=== PATIENT | male | born 1950 | race Caucasian/White ===

== ENCOUNTER → 2016-12-03 | Day surgery (SDC) | payer OTHER ==
[2016-11-17 12:12] LABS: BASO % 0.2 %; BASO ABS # 0.01 K/uL (0-0.2); COMPLETE YES; IG% 0.2 %; LYMPH % 24.3 %; MEAN CELL VOLUME 88.9 fL (80-100); MEAN CORPUSCULAR HEMOGLOBIN 31.5 pg (25-34); MEAN CORPUSCULAR HGB CONC 35.5 g/dl (32-36); MEAN PLATELET VOLUME 9.9 fL (7.4-10.4); MONO % 7.5 %; NEUT % 64.8 %; PLATELET COUNT 162 K/uL (130-400); RED BLOOD COUNT 4.95 M/uL (4.7-6.1); WHITE BLOOD COUNT 5.35 K/uL (4.8-10.8)
[2016-11-17 12:25] LABS: BLOOD UREA NITROGEN 18 mg/dl (7-18); BUN/CREATININE RATIO 19.2 (10-20); CALCIUM 8.8 mg/dl (8.5-10.1); CARBON DIOXIDE 27 mmol/L (21-32); CHLORIDE 105 mmol/L (98-107); CREATININE 0.96 mg/dl (0.60-1.40); GLUCOSE 82 mg/dl (70-99); POTASSIUM 3.9 mmol/L (3.5-5.1); SODIUM 141 mmol/L (136-145)
[2016-11-26 11:36] VITALS: Ht 170.2 cm; Wt 86.4 kg
[~2016-12-03] VITALS: Ht 170.2 cm; Wt 86.4 kg
[~2016-12-03] MED LIST: ASPI81TA28 PO; ATOR-54 PO; ATROPINE SULFATE 0.1 MG/ML 5ML SYR IV PRN; BUPIVACAINE/EPINEPHRINE 0.25% 1:200,000 30 ML VIAL ONE; CLINDAMYCIN 600MG IV SCH; DEXAMETHASONE SOD INJ 4 MG/ML VIAL ONE; EpHEDrine SULFATE 50MG/5ML SYR ONE; EpHEDrine SULFATE INJ 50 MG/ML AMP IV PRN; EpHEDrine SULFATE INJ 50 MG/ML AMP ONE; EpINEphrine INJ 1MG/ML AMP 1 MG/ML AMP ONE; FENTANYL CITRATE INJ 50 MCG/1 ML 2 ML VIAL IV PRN; FENTANYL CITRATE INJ 50 MCG/1 ML 2 ML VIAL ONE; FLM4 PO; GLYCOPYRROLATE INJ 0.2 MG/ML VIAL ONE; KETO10TA PO; LACTATED RINGER'S 1000ML 1,000 ML IV SCH; LIDOCAINE HCL 1% MPF 2 ML VIAL ONE; LIDOCAINE HCL 2% 2 ML VIAL (20MG/ML) ONE; MIDAZOLAM HCL 1 MG/ML 2ML VIAL ONE; NEOSTIGMINE METHYLSULFATE 5 MG/5 ML SYR ONE; ONDANSETRON INJ 2 MG/ML 2 ML VIAL IV PRN; ONDANSETRON INJ 2 MG/ML 2 ML VIAL ONE; OXYC-57 PO; OXYCODONE/ACETAMINOPHEN 5-325 TAB PO PRN; PHENYLEPHRINE HCL INJ 10 MG/ML VIAL ONE; PROPOFOL IV EMULSION 10 MG/ML 20 ML VIAL IV ONE; PRT/40 PO; PRVHFAIN; ROCURONIUM BROMIDE 10 MG/ML 5 ML VIAL ONE; ROPIVACAINE 0.5% 5 MG/ML 30 ML VIAL ONE; SODIUM CHLORIDE 0.9% 1000ML 1,000 ML IV SCH; SUCCINYLCHOLINE CHLORIDE 20 MG/ML 10 ML VIAL IV ONE
--- NOTE | 2016-12-03 07:43 | History & Physical Bridge - [place] ---
H&P Re-Evaluation Bridge Note: I have examined the patient, reviewed the History & Physical and in the interval since the performance of the History & Physical I have noted the following changes of clinical significance: No changes noted
--- NOTE | 2016-12-03 10:21 | [facility] Post Operative Brief Note ---
Immediate Operative Summary Operative Date Dec 03, 2016. Pre-Operative Diagnosis Left Shoulder Rotator Cuff Tear Post-Operative Diagnosis Same Procedure(s) Performed Left Shoulder Arthroscopy, Medium Rotator Cuff Repair, Acromioplasty, Biceps Tenodesis Surgeon Dr. Rawls Baler Surgeon(s) Ariana Willams PA-C Estimated Blood Loss 5 mL Findings as above Specimens None Complication(s) None Disposition Recovery Room / PACU
--- NOTE | 2016-12-03 10:39 | Discharge Instructions-SurgCtr ---
Discharge Instructions Visit Reason for Visit: Left Shoulder Full Thickness Rotator Cuff Tear Discharge Discharge Diagnosis / Problem: SAME ABOVE Discharge Goals Goal(s): Decrease discomfort, Improve function Activity Recommendations Activity Limitations: as noted below Lifting Limitations: until after follow-up appointment Exercise/Sports Limitations: until after follow-up appointment Shower/Bathe: tomorrow Driving or Machine Use: MAY NOT DRIVE WHILE IN SLING OR TAKING PAIN MEDICATION Anesthesia . Post Anesthesia Instructions: If you have had General Anesthesia or IV Sedation: * Do not drive today. * Resume driving when surgeon permits. * Do not make important decisions or sign legal documents today. * Call surgeon for: 1. Temperature elevations greater than 101 degrees F. 2. Uncontrollable pain. 3. Excessive bleeding. 4. Persistent nausea and vomiting. 5. Medication intolerance (nausea, vomiting or rash). * For nausea and vomiting use only clear liquids such as: tea, soda, bouillon until nausea subsides, then gradually increase diet as tolerated. * If you have any concerns or questions, call your surgeon's office. If physician is unavailable and it is an emergency, call 911 or go to the nearest emergency room. . Instructions / Follow-Up Instructions / Follow-Up MEDICATIONS: * Resume previous medications unless instructed otherwise by your surgeon. * Always take pain medication on a full stomach or with food to avoid upset stomach. * Do not drink alcohol or drive while taking narcotics. * Ibuprofen or Tylenol may be taken if narcotic not needed. SPECIAL CARE INSTRUCTIONS: __ None _X_ Keep extremity elevated and iced x 48 hours; apply ice 20-30 minutes 8-10 times/day. May remove at night. __ Sling __24 hrs/day __ Remove at night _X_ Shoulder Immobilizer (MAY REMOVE AFTER 24-48 HOURS ONLY TO SHOWER AND FOR THERAPY) _X_ 24 hrs/day __ Remove at night __ Dressing __ Maintain until seen in office, may shower with plastic over site _X_ Remove dressings in 24-48 hours and then may shower _X_ Cover incisions with band-aids after showering __ Do not remove steri-strips Call physician if chills or temperature rises above 102 degrees or pain unrelieved by prescribed pain medications at . . Diet Recommendations Home Diet: no limitations Fluid Restriction: None Procedures Procedures Performed: Left Shoulder Arthroscopy, Medium Rotator Cuff Repair, Acromioplasty, Biceps Tenodesis Pending Studies Studies pending at discharge: no Work Instructions Return To Work: after follow-up Lifting Limitations: NO LIFTING WITH LEFT ARM Medical Emergencies . Who to Call and When: Medical Emergencies: If at any time you feel your situation is an emergency, please call 911 immediately. . Non-Emergent Contact Non-Emergency issues call your: Primary Care Provider Call Non-Emergent contact if: you have a fever, temperature is above 101.5 . . "Provider Documentation" section prepared by Iban Willams.
--- NOTE | 2016-12-03 10:45 | OPERATIVE REPORT ---
DATE OF OPERATION: 12/03/2016 PREOPERATIVE DIAGNOSIS: Degenerative medium sized left rotator cuff tear. POSTOPERATIVE DIAGNOSIS: Same. PROCEDURE: Left shoulder diagnostic arthroscopy with limited debridement, acromioplasty, medium-sized degenerative rotator cuff repair and arthroscopic biceps tenodesis. SURGEON: Dr. Anurag Rawls. DIE FITTER: Curtis Willams PA-C, whose assistance was necessary for positioning the arm and helping with instrumentation. ANESTHESIA: General with a left interscalene nerve block. COMPLICATIONS: None. CONDITION: Stable to PACU. INDICATIONS: Julián is a pleasant 66-year-old male who presented to my office with chronic left shoulder pain. MRI and clinical examination were diagnostic for severe external impingement and degenerative rotator cuff tear. After failing conservative treatment, he elected to undergo arthroscopy. OPERATION AND FINDINGS: PROCEDURE: On 12/03/2016 he arrived at [facility] for the above procedure. He was seen in the preoperative holding and the operative extremity was identified and signed. He was given a preoperative antibiotic and a left interscalene nerve block. He was taken back to the operating room, laid on the table in supine position and put under general anesthesia. He was put into the beachchair position. The left shoulder was prepped and draped in sterile fashion. Time-out was done and the patient and operative extremity was properly identified. The scope was introduced in the posterior portal. Diagnostic arthroscopy showed a little bit of cartilage damage to the far anterior humerus. There was no cartilage damage on the glenoid. There was some fraying of the labrum. There was a tear of the entire supraspinatus and a little bit of the upper portion of the infraspinatus. The remainder of the infraspinatus, teres minor and subscapularis were all checked and intact. The biceps tendon was slightly frayed. An anterior portal was made. A shaver was used to do a limited debridement of the intraarticular structures and the biceps tendon was arthroscopically tenotomized. The scope was then put into the subacromial space. A lateral portal was made. A shaver was used to do a complete subacromial and subdeltoid bursectomy. An ablator was used to tease the coracoacromial ligament off the undersurface of the acromion and a 5-0 wil was used to complete an acromioplasty of a large Bigliani type 3 acromion. A shaver was used to remove any excess debris. The bursal side of the rotator cuff was examined with evidence of the tear. An additional anterolateral portal was made and Kayley cannulas were placed in each of the lateral portals. The greater tuberosity was prepared with a ring curette and a microfracture. The rotator cuff was then fixed with an Arthrex SpeedBridge configuration with 4.75 mm BioComposite SwiveLock suture anchors and FiberTape. The biceps tendon was lassoed with a fiber loop and brought down to the lateral anchor. This gave a nice knotless rotator cuff repair as well as an arthroscopic biceps tenodesis. Multiple pictures were taken. The scope was placed back into the glenohumeral joint and the articular margin of the rotator cuff had been restored. Pictures were taken. Arthroscopic instruments were removed from the shoulder. Portal sites were closed with 3-0 nylon. He was then placed in a soft dressing and an abduction arm sling. He was then extubated, transferred to a litter and taken to the postanesthesia care unit in stable condition. He tolerated the procedure well. I attest to the content of the Intraoperative Record and any orders documented therein. Any exceptio ns are noted below.
[2016-12-03 11:20] VITALS: TEMP 36.4
[2016-12-03 11:55] VITALS: BP 126/79; PULSE 68; O2SAT 96
--- NOTE | 2016-12-03 12:09 | Anesthesia Progress Nt - [facility] ---
Anesthesia Post Op Note Date & Time Dec 03, 2016 at 12:08 Vital Signs Pain Intensity: 0 Vital Signs Past 12 Hours Date Time Temp Pulse Resp B/P Pulse Ox O2 Delivery O2 Flow Rate FiO2 12/03/16 11:55 68 16 126/79 96 Room Air 12/03/16 11:20 36.4 67 16 119/71 96 Room Air 12/03/16 11:11 36.5 12/03/16 11:08 72 14 12/03/16 11:08 71 14 119/75 95 12/03/16 11:03 68 14 12/03/16 11:03 68 14 120/71 94 12/03/16 11:01 Room Air 12/03/16 10:58 68 13 12/03/16 10:58 67 13 114/86 98 12/03/16 10:53 62 15 122/69 98 12/03/16 10:53 63 15 12/03/16 10:48 68 17 136/71 97 12/03/16 10:48 67 17 12/03/16 10:43 71 17 12/03/16 10:43 70 17 136/72 99 12/03/16 10:38 67 15 137/62 98 12/03/16 10:38 68 15 12/03/16 10:35 36.4 75 16 124/74 99 Diffusion Mask 6 12/03/16 08:55 61 18 93 12/03/16 08:55 61 12/03/16 08:54 62 12/03/16 08:54 61 20 93 12/03/16 08:53 140/93 12/03/16 08:49 61 19 96 12/03/16 08:49 61 12/03/16 08:48 141/92 12/03/16 08:44 61 18 93 12/03/16 08:44 62 12/03/16 08:43 155/100 12/03/16 08:39 62 12/03/16 08:39 62 18 93 12/03/16 08:38 147/93 12/03/16 08:34 63 23 94 12/03/16 08:34 62 12/03/16 08:33 148/95 12/03/16 08:29 62 22 96 12/03/16 08:29 62 12/03/16 08:28 143/101 12/03/16 08:24 61 23 96 12/03/16 08:24 61 12/03/16 08:23 156/101 12/03/16 08:19 60 22 97 12/03/16 08:19 61 12/03/16 08:18 144/96 12/03/16 08:14 69 22 145/105 97 Nasal Cannula 3 12/03/16 08:14 61 17 98 12/03/16 08:14 61 12/03/16 08:13 171/105 12/03/16 08:12 145/105 12/03/16 08:09 60 0 12/03/16 08:04 60 0 12/03/16 07:36 36.7 65 22 169/94 97 Room Air Notes Mental Status: alert / awake / arousable, participated in evaluation Pt Amnestic to Procedure: Yes Nausea / Vomiting: adequately controlled Pain: adequately controlled Airway Patency, RR, SpO2: stable & adequate BP & HR: stable & adequate Hydration State: stable & adequate Anesthetic Complications: no major complications apparent
== END | disposition home or self-care (01) ==
LOC: X.SURG 07:04
PROVIDERS: ATTEND Orthopaedic Surgery
DX: M75.102 Unspecified rotator cuff tear or rupture of left shoulder, not specified as traumatic (principal); E78.5 Hyperlipidemia, unspecified; K21.9 Gastro-esophageal reflux disease without esophagitis; J45.909 Unspecified asthma, uncomplicated; Z88.0 Allergy status to penicillin

== ENCOUNTER → 2018-02-11 | Day surgery (SDC) | payer OTHER ==
[2018-01-31 08:39] VITALS: Ht 170.2 cm; Wt 86.4 kg
[~2018-02-11] VITALS: Ht 170.2 cm; Wt 86.4 kg
[~2018-02-11] MED LIST changes: -BUPIVACAINE/EPINEPHRINE 0.25% 1:200,000 30 ML VIAL ONE; -CLINDAMYCIN 600MG IV SCH; -EpHEDrine SULFATE 50MG/5ML SYR ONE; -EpINEphrine INJ 1MG/ML AMP 1 MG/ML AMP ONE; -GLYCOPYRROLATE INJ 0.2 MG/ML VIAL ONE; -KETO10TA PO; +KETOROLAC TROMETHAMINE 30 MG/ML VIAL ONE; -LIDOCAINE HCL 1% MPF 2 ML VIAL ONE; -MIDAZOLAM HCL 1 MG/ML 2ML VIAL ONE; -NEOSTIGMINE METHYLSULFATE 5 MG/5 ML SYR ONE; -OXYCODONE/ACETAMINOPHEN 5-325 TAB PO PRN; +PANT40TA2 PO; -PHENYLEPHRINE HCL INJ 10 MG/ML VIAL ONE; -PRT/40 PO; -PRVHFAIN; -ROCURONIUM BROMIDE 10 MG/ML 5 ML VIAL ONE; -ROPIVACAINE 0.5% 5 MG/ML 30 ML VIAL ONE; -SODIUM CHLORIDE 0.9% 1000ML 1,000 ML IV SCH; -SUCCINYLCHOLINE CHLORIDE 20 MG/ML 10 ML VIAL IV ONE; +VNTHFA/IN INH
--- NOTE | 2018-02-11 08:01 | [facility] Operative Report ---
Operative Report Operative Date Feb 11, 2018. Pre-Operative Diagnosis Right Renal Calculi Post-Operative Diagnosis Same Procedure(s) Performed Right Extracorporeal Shock Wave Lithotripsy Surgeon Dr. Rafael Newton Vault Custodian Surgeon(s) None Estimated Blood Loss 0 Findings radio-opaque right kidney stones Fluids 800mL Specimens None Drains None Anesthesia Type General Complication(s) none Disposition yes Recovery Room / PACU Indications right kidney stones Description of Procedure Patient had general LMA anesthesia and then was placed supine on OR table with right side against the lithotripsy head. We used biplanar fluoro to position the larger LP stone int he focal zone. We delivered 2500 shocks to the stone observing a 2 minute rest after the first 200 shocks. The stone widened then paled on fluoro through the course of treatment. He tolerated procedure well and transferred to recovery room in stable condition. Plan Home today oral pain meds narcotic and NSAID flomax daily for 2 weeks. strain urine for specimen. asa 2 Fluoro: 2 minutes 1 second I attest to the content of the Intraoperative Record and any orders documented therein. Any exceptions are noted below.
--- NOTE | 2018-02-11 08:04 | Discharge Instructions ---
Discharge Instructions Date of Service Feb 11, 2018. Admission Reason for Admission: Kidney Stones Discharge Discharge Diagnosis / Problem: right kidney stones Discharge Goals Goal(s): Decrease discomfort, Improve disease control Activity Recommendations Activity Limitations: resume your previous activity Lifting Limitations: none Exercise/Sports Limitations: none May Resume Sexual Activity: when tolerated Shower/Bathe: no limitations Driving or Machine Use: resume 1 day after discharge . Instructions / Follow-Up Instructions / Follow-Up we will repeat the x-ray in one month please strain your urine until you collect a few stone fragments for analysis Current Hospital Diet Patient's current hospital diet: Discharge Diet Recommended Diet: Regular Diet Fluid Restriction: None Procedures Procedures Performed: Right Extracorporeal Shock Wave Lithotripsy Pending Studies Studies pending at discharge: no Medical Emergencies . Who to Call and When: Medical Emergencies: If at any time you feel your situation is an emergency, please call 911 immediately. . Non-Emergent Contact Non-Emergency issues call your: Urologist ([phone]) Call Non-Emergent contact if: temperature is above 100.5, your pain is not controlled . . "Provider Documentation" section prepared by Sujata Newton. . [place] Drug Monitoring Program Search Results: patient reviewed within database, no issues identified
[2018-02-11 08:49] VITALS: TEMP 36.2
[2018-02-11 09:30] VITALS: BP 161/92; PULSE 60; O2SAT 96
--- NOTE | 2018-02-11 09:35 | Anesthesia Progress Nt - [facility] ---
Anesthesia Post Op Note Date & Time Feb 11, 2018 at 09:34 Vital Signs Pain Intensity: 0 Vital Signs Past 12 Hours Date Time Temp Pulse Resp B/P (MAP) Pulse Ox O2 Delivery O2 Flow Rate FiO2 02/11/18 09:30 60 18 161/92 (115) 96 Room Air 02/11/18 08:49 36.2 67 18 157/109 (125) 96 Room Air 02/11/18 08:40 134/88 02/11/18 08:40 36.5 60 12 134/88 96 Room Air 02/11/18 08:38 61 7 02/11/18 08:38 61 7 97 02/11/18 08:36 135/88 02/11/18 08:33 58 8 95 02/11/18 08:33 58 8 02/11/18 08:30 134/84 02/11/18 08:28 58 0 95 02/11/18 08:28 59 0 02/11/18 08:25 131/83 02/11/18 08:23 60 0 02/11/18 08:23 60 0 93 02/11/18 08:20 137/87 02/11/18 08:18 69 19 97 02/11/18 08:18 70 19 02/11/18 08:15 133/80 02/11/18 08:13 62 19 02/11/18 08:13 60 19 99 02/11/18 08:10 130/89 02/11/18 08:08 60 17 02/11/18 08:08 58 17 98 02/11/18 08:05 137/90 02/11/18 08:03 58 13 99 02/11/18 08:03 58 13 02/11/18 08:00 129/76 02/11/18 07:58 36.2 63 16 135/79 98 Room Air 6 02/11/18 07:58 60 13 02/11/18 07:58 60 13 135/79 98 02/11/18 06:34 36.7 57 16 175/92 (119) 96 Room Air Notes Mental Status: alert / awake / arousable, participated in evaluation Pt Amnestic to Procedure: Yes Nausea / Vomiting: adequately controlled Pain: adequately controlled Airway Patency, RR, SpO2: stable & adequate BP & HR: stable & adequate Hydration State: stable & adequate Anesthetic Complications: no major complications apparent
== END | disposition home or self-care (01) ==
LOC: X.SURG 06:21
PROVIDERS: ATTEND Urology
DX: N20.0 Calculus of kidney (principal); Z88.0 Allergy status to penicillin; Z79.82 Long term (current) use of aspirin

== ENCOUNTER 2020-01-22 07:16 | Inpatient (IN) ==
--- NOTE | 2020-01-22 07:38 | Emergency Department Note ---
ED Provider Note CHIEF COMPLAINT: Chest pain HISTORY OF PRESENTING ILLNESS: This is a 69-year-old male who presents to the emergency department by private vehicle with his with complaint of chest pain and nausea that started yesterday morning. The patient states that he woke up with the pain around 6 AM yesterday and has been fairly constant since that time. The pain is worse with eating. He states the pain is in the center of his chest and his epigastric region and radiates up into his jaw and left shoulder blade area, he currently rates the pain a 6/10. He has not tried any medications for his symptoms. He does note that he had similar chest pain a few years ago, had a stress test that was slightly abnormal and ended up having a heart catheterization that did not show any significant vessel disease. He has had associated nausea, but denies any vomiting. He denies any shortness of breath, dizziness, or sweating. He denies any back pain, headache, dizziness, URI symptoms, leg pain or swelling, bowel or bladder symptoms, or unusual rash. He does note a history of bad reflux, his thinks that this is worse than usual, but he states this feels different from his reflux. He has been burping more than usual. REVIEW OF SYSTEMS: A complete 10 point review of systems was reviewed with the patient with pertinent positives and negatives as per history of present illness. All else were negative. PAST MEDICAL HISTORY: Hypertension, GERD, hypercholesterolemia, BPH SOCIAL HISTORY: Lives at home with his , he denies tobacco use he reports rare alcohol use ALLERGIES: Reviewed in chart and with the patient PHYSICAL EXAM: CONSTITUTIONAL: Pleasant and cooperative. Nontoxic-appearing and no acute distress. Well appearing and well nourished. HEENT: Normocephalic, atraumatic. PERRL, EOMI. NECK: Supple, full active range of motion without discomfort. RESPIRATORY: Clear to auscultation bilaterally with no wheezing, crackles, rhonchi or stridor. Equal expansion bilaterally. CARDIOVASCULAR: Regular rate and rhythm with no murmurs, rubs or gallops. Normal peripheral perfusion, 2+ distal pulses in all 4 extremities. No pitting edema. GASTROINTESTINAL: Moderate tenderness in the epigastric abdomen, the abdomen is otherwise nontender, soft and nondistended. No rebound tenderness or guarding. No palpable masses or HSM. Bowel sounds present in all quadrants. No CVA tenderness bilaterally. MUSCULOSKELETAL: Full range of motion of all joints without discomfort. INTEGUMENTARY: No rash or other significant dermatologic conditions noted. NEUROLOGIC: Alert and oriented X 4 with normal affect. Normal strength and sen sation in all 4 extremities. Normal speech. Normal gait observed. ED COURSE AND MEDICAL DECISION MAKING: CC: Patient presenting with complaint of chest pain DIFFERENTIAL DIAGNOSIS: Includes, but not limited to acute coronary syndrome, pulmonary embolism, aortic dissection, pneumothorax, pericarditis, myocarditis, anxiety, musculoskeletal pain, GERD, cholecystitis, choledocholithiasis, pancr eatitis, costochondritis, pneumonia, among others. INTERPRETATION OF LABS: No leukocytosis, no anemia, normal platelets, no significant electrolyte abnormalities, normal renal function, normal liver enzymes. Lipase is significantly elevated. Negative troponin IMAGING: XR chest 1V portable CLINICAL HISTORY: Chest Pain pain COMPARISON STUDY: 06/20/2016 FINDINGS: The bones soft tissues and hemidiaphragms are normal. The cardiomediastinal silhouette is normal. The lungs are clear. The pulmonary vasculature is normal. IMPRESSION: Negative chest. ----- US gallbladder CLINICAL HISTORY: 69 years-old Male presenting with epigastric tenderness, elevated lipase. TECHNIQUE: Real-time grayscale and limited color Doppler ultrasound imaging of the abdomen limited to the right upper quadrant was performed. COMPARISON: CT from 08/19/2015. FINDINGS: Pancreas: Largely obscured due to overlying bowel gas. Liver: Normal echogenicity and echotexture. The liver measures 15.4 cm in maximal sagittal dimension. No sonographic evidence of hepatic mass. Main portal vein patent with normal directional flow. Biliary: No intrahepatic biliary ductal dilatation. Common bile duct measures up to 4 mm in diameter. Gallbladder: The gallbladder is physiologically distended. No evidence of gallstones, gallbladder wall thickening, pathologic distention, or pericholecystic fluid or inflammatory change. Sonographic Trevino's sign negative. Right kidney: Cortical thinning may be present. Slightly increased echogenicity of parenchyma. Parapelvic cyst suspected at the lower pole. No convincing dom dence of hydronephrosis. Ascites: None. Other: None. IMPRESSION: 1. No cholelithiasis or biliary ductal dilatation. 2. Mild medical renal disease suggested by cortical thinning of the right kidn ey. No hydronephrosis. EKG: Shows sinus bradycardia with a rate of 58 bpm, first-degree AV block, otherwise normal intervals, no ST or T wave abnormalities, no ectopy, no significant change when compared to previous EKG from 11/17/2016 by my interpretation. MEDICATION RECONCILIATION: I attest that I have personally reviewed the patient's current medication list. INITIAL VITAL SIGNS REVIEW: I reviewed the patient's initial vital signs and interpret them as follows: T: Afebrile; BP: Hypertensive; HR: Bradycardic; RR: Within normal limits; Pulse Ox: Within normal limits on room air. Blood pressure screening: The patient was found to have an elevated blood pressure and was referred to the inpatient team for further management. MDM SUMMARY: Patient was evaluated at bedside, history and physical exam performed. Patient is alert and oriented, in no acute distress, resting calmly in stretcher. Heart sounds are normal. Lungs are clear. 2+ pulses in all 4 extremities. Moderate tenderness in the epigastric region which does reproduce complaint. No acute abdomen. Low risk for PE by Wells criteria. Heart score of 4 based on age and risk factors. EKG reviewed at bedside, noting sinus bradycardia with first-degree AV block, no acute ischemic changes. Orders were placed at bedside for labs including troponin, aspirin, IV morphine for pain, chest x-ray to evaluate for cardiopulmonary disease. Patient discussed with Dr. Thomas, who agrees with my assessment, plan, and disposition. Labs and imaging reviewed as above, labs are notable for significantly elevated lipase, liver enzymes are normal. No leukocytosis. Negative troponin. Chest x-ray is clear. Ultrasound of the gallbladder was performed, no notable abnormalities found. I have a low suspicion for ACS given the patient's negative EKG and troponin after more than 24 hours of chest pain. His symptoms with abdominal tenderness do seem consistent with acute pancreatitis. IV fluid bolus ordered. He denies any previous history of this, unclear etiology at this time. He denies frequent or heavy alcohol use. Patient reassessed multiple times throughout ED stay, he has remained hemodynamically stable and afebrile, reports his pain is improved after the IV morphine, and he appears more comfortable. The patient and his were updated on all results and plan for admission, they were comfortable with this plan. I spoke with the [facility] team, who agreed to evaluate the patient for admission. The patient was stable at time of admission. The chart was completed utilizing Dragon Speech voice recognition software. Grammatical errors, random word insertions, pronoun errors, and incomplete se ntences are an occasional consequence of this system due to software limitations, ambient noise, and hardware issues. Any formal questions or concerns about the content, text, or information contained within the body of this dictation should be directly addressed to the nurse practitioner for hemal fication. Impression & Plan Acute pancreatitis, Chest pain Past Med/Surg History Medical History (Updated 01/22/20 @ 15:39 by NARINDER Arreguin) BPH (benign prostatic hyperplasia) GERD (gastroesophageal reflux disease) (Chronic) HTN (hypertension) Hypercholesteremia (Chronic) Kidney stone (Inactive) Surgical History (Updated 01/22/20 @ 11:27 by Vy Aguilar PA-C) History of colonoscopy History of esophagogastroduodenoscopy (EGD) History of lithotripsy Family History Father Prostate cancer Mother Alive and well Social History (Updated 01/22/20 @ 11:29 by Vy Aguilar PA-C) Preferred Language: Maldivian Communication Ability: Effective Beliefs That Will Affect Care: None Current Living Situation: Spouse Other Information That Helps Us Care for You: No Feels Safe at Home: Yes Safety Concerns: Feels Safe At This Time Smoking Status: Never smoker Hx Alcohol Use: Yes Alcohol Intake Frequency: Rarely Hx Substance Use: No Results & Data Vital Signs Vital Signs - 24 hr 01/22/20 07:17 01/22/20 07:36 01/22/20 08:00 Temperature 36.5 C Temperature Source Oral Pulse Rate 55 L Pulse Rate [Left Finger] 59 L Respiratory Rate 18 22 Respiratory Effort / Characteristics Non-Labored Spontaneous Respiratory Depth Normal Respiratory Pattern Regular Blood Pressure 161/84 H Blood Pressure [Left Arm] 141/82 H Blood Pressure Mean 109 Blood Pressure Mean [Left Arm] 101 Blood Pressure Position Sitting Pulse Oximetry 97 96 96 Oxygen Delivery Method Room Air Room Air Room Air Sepsis Recent Fever Within 48 Hours No Sepsis New/Unexplained Change in Mental Status No Sepsis Action Taken by Nursing No Action Required 01/22/20 09:05 01/22/20 09:56 Temperature Temperature Source Pulse Rate Pulse Rate [Left Finger] 56 L 57 L Respiratory Rate 20 18 Respiratory Effort / Characteristics Respiratory Depth Respiratory Pattern Blood Pressure Blood Pressure [Left Arm] 129/73 128/72 Blood Pressure Mean Blood Pressure Mean [Left Arm] 91 90 Blood Pressure Position Pulse Oximetry 95 95 Oxygen Delivery Method Room Air Room Air Sepsis Recent Fever Within 48 Hours Sepsis New/Unexplained Change in Mental Status Sepsis Action Taken by Nursing Laboratory Data Result diagrams: 01/22/20 07:32 01/22/20 07:32 Lab Results 01/22/20 01/22/20 01/22/20 Range/Units 07:32 07:32 07:32 WBC 7.74 (4.8-10.8) K/uL RBC 4.60 L (4.7-6.1) M/uL Hgb 14.7 (14.0-18.0) g/dL Hct 42.7 (42-52) % MCV 92.8 (80-100) fL MCH 32.0 (25-34) pg MCHC 34.4 (32-36) g/dL RDW Std Deviation 43.8 (36.4-46.3) fL RDW Coeff of Aleta 12.9 (11.5-14.5) % Plt Count 179 (130-400) K/uL MPV 9.9 (7.4-10.4) fL Immature Gran % (Auto) 0.1 % Neut % (Auto) 76.3 % Lymph % (Auto) 14.3 % [place] % (Auto) 7.8 % Eos % (Auto) 1.4 % Baso % (Auto) 0.1 % Immature Gran # (Auto) 0.01 (0.00-0.02) K/uL Neut # (Auto) 5.90 (1.4-6.5) K/uL Lymph # (Auto) 1.11 L (1.2-3.4) K/uL [place] # (Auto) 0.60 H (0.11-0.59) K/uL Eos # (Auto) 0.11 (0-0.5) K/uL Baso # (Auto) 0.01 (0-0.2) K/uL PT 10.9 (9.0-12.0) Seconds INR 1.0 (0.9-1.1) APTT 26.2 (21.0-31.0) Seconds PTT Ratio 0.9 Sodium 140 (136-145) mmol/L Potassium 3.8 (3.5-5.1) mmol/L Chloride 107 (98-107) mmol/L Carbon Dioxide 27 (21-32) mmol/L Anion Gap 6.0 (3-11) BUN 19 H (7-18) mg/dl Creatinine 1.01 (0.6-1.4) mg/dl Est Cr Clr Drug Dosing 73.6 ml/min Est GFR ( Amer) 88.8 Est GFR (Non-Af Amer) 76.6 BUN/Creatinine Ratio 18.7 (10-20) Glucose 96 (70-99) mg/dl Calcium 8.5 (8.5-10.1) mg/dl Total Bilirubin 0.9 (0.2-1) mg/dl AST 19 (15-37) U/L ALT 26 (12-78) U/L Alkaline Phosphatase 93 (45-117) U/L Troponin I < 0.015 (0-0.045) ng/ml Total Protein 7.0 (6.4-8.2) gm/dl Albumin 3.4 (3.4-5.0) gm/dl Globulin 3.6 (2.5-4.0) gm/dl Albumin/Globulin Ratio 0.9 (0.9-2) Lipase 1221 H (73-393) U/L Administered Medications Lactated Ringer's (Lr) 1,000 mls @ 200 mls/hr IV .Q5H KATIANA Stop: 02/21/20 11:14 Last Admin: 01/22/20 11:37 Dose: 200 mls/hr Documented by: [id number] Discontinued Medications Aspirin (Aspirin Chew) 324 mg PO NOW STA Stop: 01/22/20 07:51 Last Admin: 01/22/20 08:38 Dose: Not Given Documented by: [id number] Sodium Chloride (Nss 1000ml) 1,000 mls @ 999 mls/hr IV .Q1H1M ONE Stop: 01/22/20 10:03 Last Infusion: 01/22/20 09:57 Dose: 0 mls/hr Documented by: [id number] Admin: 01/22/20 09:17 Dose: 999 mls/hr Documented by: [id number] Morphine Sulfate (Morphine Sulfate) 4 mg IV NOW STA Stop: 01/22/20 08:06 Last Admin: 01/22/20 08:33 Dose: 4 mg Documented by: [id number] Discharge Plan Visit Data *Final* Discharge Date/Time: 01/22/20 11:06 Chief Complaint: Chest Pain Stated Complaint: CHEST PAIN,NAUSEA ED Provider: Anurag Thomas ED Midlevel Provider: Violet Lawson Discharge Problem: Acute pancreatitis, Chest pain Patient Disposition: Admitted As Inpatient Condition: Good Discharge Instructions Interventions: ED Discharge Assessment Last Done: 01/22/20 11:06
[2020-01-22 07:46] LABS: Basophils # (auto) 0.01 K/uL (0-0.2); Basophils % (auto) 0.1 %; Eosinophils # (auto) 0.11 K/uL (0-0.5); Eosinophils % (auto) 1.4 %; Hematocrit (blood only) 42.7 % (42-52); Hemoglobin 14.7 g/dL (14.0-18.0); Immature Granulocytes # (auto) 0.01 K/uL (0.00-0.02); Immature Granulocytes % (auto) 0.1 %; Lymphocytes # (auto) 1.11 K/uL (1.2-3.4); Lymphocytes % (auto) 14.3 %; Mean Corpuscular Hgb Conc 34.4 g/dL (32-36); Mean Corpuscular Volume 92.8 fL (80-100); Mean Platelet Volume 9.9 fL (7.4-10.4); Monocytes % (auto) 7.8 %; Neutrophils % (auto) 76.3 %; Platelet Count 179 K/uL (130-400); RDW Coefficient of Variation 12.9 % (11.5-14.5); RDW Standard Deviation 43.8 fL (36.4-46.3); White Blood Count 7.74 K/uL (4.8-10.8)
[2020-01-22] MEDS ORDERED: ASPIRIN 81 MG CHEW PO STA (07:50)
[2020-01-22 07:57] LABS: Partial Thromboplastin Ratio 0.9; Partial Thromboplastin Time 26.2 Seconds (21.0-31.0); Prothrombin Time 10.9 Seconds (9.0-12.0)
[2020-01-22 08:02] LABS: Alanine Aminotransferase 26 U/L (12-78); Albumin Level 3.4 gm/dl (3.4-5.0); Aspartate Aminotransferase 19 U/L (15-37); BUN Creatinine Ratio 18.7 (10-20); Blood Urea Nitrogen 19 mg/dl (7-18); Calcium 8.5 mg/dl (8.5-10.1); Carbon Dioxide 27 mmol/L (21-32); Chloride 107 mmol/L (98-107); Creatinine Clr Calc Pharmacy 73.6 ml/min; Est GFR (African American) 88.8; Est GFR (Non-African American) 76.6; Glucose 96 mg/dl (70-99); Lipase 1221 U/L (73-393); Potassium 3.8 mmol/L (3.5-5.1); Sodium 140 mmol/L (136-145)
[2020-01-22] MEDS ORDERED: MoRPHine SULFATE 4 MG/ML 1 ML CARP\\VIAL IV STA (08:05)
[2020-01-22 08:06] LABS: Albumin Globulin Ratio 0.9 (0.9-2); Alkaline Phosphatase 93 U/L (45-117); Bilirubin,Total 0.9 mg/dl (0.2-1); Globulin 3.6 gm/dl (2.5-4.0); Troponin I < 0.015 ng/ml (0-0.045)
--- NOTE | 2020-01-22 08:12 | XRay Report ---
XR chest 1V portable CLINICAL HISTORY: Chest Pain pain COMPARISON STUDY: 06/20/2016 FINDINGS: The bones soft tissues and hemidiaphragms are normal. The cardiomediastinal silhouette is n ormal. The lungs are clear. The pulmonary vasculature is normal. IMPRESSION: Negative chest. ACT 112: Negative or not required by law. The above report was generated using voice recognition software. It may contain grammatical, syntax or spelling errors. Electronically signed by: Amrik Knox M.D. 01/22/2020 8:11 AM
--- NOTE | 2020-01-22 09:02 | Ultrasound Report ---
US gallbladder CLINICAL HISTORY: 69 years-old Male presenting with epigastric tenderness, elevated lipase. TECHNIQUE: Real-time grayscale and limited color Doppler ultrasound imaging of the abdomen limited to the right upper quadrant was performed. COMPARISON: CT from 08/19/2015. FINDINGS: Pancreas: Largely obscured due to overlying bowel gas. Liver: Normal echogenicity and echotexture. The liver measures 15.4 cm in maximal sagittal dimension. No sonographic evidence of hepatic mass. Main portal vein patent with normal directional flow. Biliary: No intrahepatic biliary ductal dilatation. Common bile duct measures up to 4 mm in diameter. Gallbladder: The gallbladder is physiologically distended. No evidence of gallstones, gallbladder wal l thickening, pathologic distention, or pericholecystic fluid or inflammatory change. Sonographic Mur phy's sign negative. Right kidney: Cortical thinning may be present. Slightly increased echogenicity of parenchyma. Parape lvic cyst suspected at the lower pole. No convincing evidence of hydronephrosis. Ascites: None. Other: None. IMPRESSION: 1. No cholelithiasis or biliary ductal dilatation. 2. Mild medical renal disease suggested by cortical thinning of the right kidney. No hydronephrosis. ACT 112: Negative or not required by law. Electronically signed by: Gianluca Geiger M.D. 01/22/2020 9:01 AM
[2020-01-22] MEDS ORDERED: SODIUM CHLORIDE 0.9% 1000ML 1,000 ML IV ONE (09:03)
[2020-01-22] MEDS ORDERED: PNEUMOCOCCAL POLYSACCHARIDES 25 MCG/0.5 ML VIAL/SYR IM ONE (10:42)
[2020-01-22] MEDS ORDERED: PNEUMOCOCCAL ADMINISTRATION CHARGE ONE (10:42)
[2020-01-22] MEDS ORDERED: ONDANSETRON INJ 2 MG/ML 2 ML VIAL IV PRN (11:32)
[2020-01-22] MEDS ORDERED: ACETAMINOPHEN 325 MG TAB PO PRN (11:32)
[2020-01-22] MEDS ORDERED: ALUMINUM/MAGNESIUM SUSP 30 ML UDC PO PRN (11:32)
[2020-01-22] MEDS ORDERED: HYDROmorphone INJ 0.5 MG/0.5 ML SYR IV PRN (11:32)
--- NOTE | 2020-01-22 11:35 | History & Physical Report ---
Date of Service January 22, 2020 Assessment & Plan (1) Chest pain: (2) Acute pancreatitis: This is a 69 year old M who has a significant PMH of HTN, HLD, BPH, GERD who presents to ED due to chest pain x 1.5 days In ED he remained hemodynamically stable. Notable lab abnormalities for lipase 1221. CBC and CMP relatively unremarkable. He received 1L IVF while in ED along with IV morphine with improvement in pain. CP likely 2/2 to acute pancreatitis given epigastric tenderness on exam and re producible chest pain. History of cardiac cath 2 to 3 years ago which was unremarkable. Etiology unknown: no hx of heavy ETOH use, NSAID use, trauma, med induced Admit to [facility] Bowel rest with n.p.o. IVF 200 cc/h LR 0.5 mg Dilaudid q3h as needed for severe pain consult GI: appreciate their input RUQ U/S WNL; however pt does complain of occasional RUQ pain after fatty meals ? if pt to benefit from Hida scan as outpt cycle troponin (3) HTN (hypertension): BP stable, continue lisinopril with parameters (4) Hypercholesteremia: continue statin fasting lipid panel in a.m. r/o hypertriglyceridemia (5) BPH (benign prostatic hyperplasia): continue flomax and finasteride (6) GERD (gastroesophageal reflux disease): continue PPI bid (7) DVT prophylaxis: Lovenox Disposition: admit to med/surg Follow up: PCP Dr. Will upon discharge Pt was seen and examined in collaboration with Dr. Tavarez, please see addendum History of Present Illness Chief Complaint: Chest pain x 1.5 days. Primary Care Provider: Collins Will DO This is a 69 year old M who has a significant PMH of HTN, HLD, BPH, GERD who presents to ED due to chest pain x 1.5 days. Chest pain is located LACW with occasional radiation to RACW and L side of neck. Pain is constant, waxes and wanes in severity, worse 8/10, currently 4/10, described as sharp and stabbing at worst. Has tried nothing OTC to help sx. IV morphine improved pain. Has never had in past. Associated with nausea and SOB for the past 1 day. He denies f/c/s, dizzy, lightheaded, palpitations, cough, hemoptysis, emesis, abdominal pain, change in bowel or urinary habits. Last BM this morning, normal no melena. Appetite has been normal. No prior hx of pancreatitis. No hx of abdominal surgery. +hx of GERD on PPI. EGD few years ago revealed mild irritation. States occasionally after fatty meals he will get RUQ abdominal discomfort. is at bedside. Of significance approx 2 weeks ago he did have URI with productive cough and feverish but this has since resolved. In ED he remained hemodynamically stable. Notable lab abnormalities for lipase 1221. CBC and CMP relatively unremarkable. He received 1L IVF while in ED along with IV morphine with improvement in pain. Allergies Allergy/AdvReac Type Severity Reaction Status Date / Time Penicillins Allergy Intermediate HIVES Verified 01/22/20 08:08 Home Medications Home Medications Medication Instructions Recorded Confirmed Type albuterol sulfate 2 - 4 inh INHALATION Q6H PRN 01/22/20 01/22/20 History atorvastatin 20 mg PO HS 01/22/20 01/22/20 History finasteride 5 mg PO DAILY 01/22/20 01/22/20 History lisinopril 20 mg PO DAILY 01/22/20 01/22/20 History pantoprazole 40 mg PO BID 01/22/20 01/22/20 History tamsulosin 0.8 mg PO HS 01/22/20 01/22/20 History Past Med/Surg History Medical History (Updated 01/22/20 @ 11:45 by Vy Aguilar PA-C) BPH (benign prostatic hyperplasia) GERD (gastroesophageal reflux disease) (Chronic) HTN (hypertension) Hypercholesteremia (Chronic) Kidney stone (Inactive) Surgical History (Updated 01/22/20 @ 11:27 by Vy Aguilar PA-C) History of colonoscopy History of esophagogastroduodenoscopy (EGD) History of lithotripsy Family History Father Prostate cancer Mother Alive and well Social History (Updated 01/22/20 @ 11:29 by Vy Aguilar PA-C) Preferred Language: Czech Communication Ability: Effective Beliefs That Will Affect Care: None Current Living Situation: Spouse Other Information That Helps Us Care for You: No Feels Safe at Home: Yes Safety Concerns: Feels Safe At This Time Smoking Status: Never smoker Hx Alcohol Use: Yes Alcohol Intake Frequency: Rarely Hx Substance Use: No Review of Systems Review of Systems: All systems reviewed & are unremarkable except as noted in HPI & below Physical Exam Physical Exam: Constitutional: WD/WN, vitals as above, NAD, sitting up in bed, pleasant, conversing easily Head: Normocephalic, Atraumatic Eyes: PERRL, conjunctivae normal, anicteric sclerae ENMT: external ear and nose normal, oropharynx normal Neck: trachea midline, no thyromegaly normal visual inspection Respiratory: normal respiratory effort, lungs clear to auscultation, no wheeze, rales, rhonchi. Normal insp/exp effort, no accessory muscle use Cardiovascular: RRR, no murmur, no edema Vessels: no JVD or carotid bruit Chest: normal inspection of chest , + LACW pain to palpation. Pain reproducible Abdomen: normal bowel sounds, +Epigastric tenderness with mild rebound, no guarding or rigidity, nontender, no hepatosplenomegaly Musculoskeletal: no cyanosis or clubbing, extremities motor strength 5/5 Skin: no rashes, warm and dry normal turgor Neurologic: PERRL, EOMI, accommodation nl, no face palsy, no dysarthria CN's II-XI intact bilaterally and moves all extremities Psychiatric: A+Ox3, euthymic affect Lymphatic: no cervical or axillary lymphadenopathy : deferred Results & Data Vital Signs (Past 12 Hours) Vital Signs Temp Pulse Pulse Resp BP BP Pulse Ox 01/22/20 11:06 59 L 18 155/76 H 98 01/22/20 09:56 57 L 18 128/72 95 01/22/20 09:05 56 L 20 129/73 95 01/22/20 08:00 59 L 22 141/82 H 96 01/22/20 07:36 96 01/22/20 07:17 36.5 C 55 L 18 161/84 H 97 Laboratory Results Short CBC 01/22/20 01/22/20 Range/Units 07:32 07:32 WBC 7.74 (4.8-10.8) K/uL Hgb 14.7 (14.0-18.0) g/dL Hct 42.7 (42-52) % Plt Count 179 (130-400) K/uL Creatinine 1.01 (0.6-1.4) mg/dl [facility] 01/22/20 07:32 Sodium 140 Potassium 3.8 Chloride 107 Carbon Dioxide 27 BUN 19 H Creatinine 1.01 Glucose 96 Calcium 8.5 Cardiac Enzymes 01/22/20 Range/Units 07:32 Troponin I < 0.015 (0-0.045) ng/ml Liver Function 01/22/20 Range/Units 07:32 Total Bilirubin 0.9 (0.2-1) mg/dl AST 19 (15-37) U/L ALT 26 (12-78) U/L Alkaline Phosphatase 93 (45-117) U/L Albumin 3.4 (3.4-5.0) gm/dl Diagnostic Findings CXR: IMPRESSION: Negative chest. Gallbladder US: IMPRESSION: 1. No cholelithiasis or biliary ductal dilatation. 2. Mild medical renal disease suggested by cortical thinning of the right kidney. No hydronephrosis. Medications Administered Short CBC 01/22/20 Range/Units 07:32 WBC 7.74 (4.8-10.8) K/uL Hgb 14.7 (14.0-18.0) g/dL Hct 42.7 (42-52) % Plt Count 179 (130-400) K/uL [facility] 01/22/20 07:32 Sodium 140 Potassium 3.8 Chloride 107 Carbon Dioxide 27 BUN 19 H Creatinine 1.01 Glucose 96 Calcium 8.5 Cardiac Enzymes 01/22/20 Range/Units 07:32 Troponin I < 0.015 (0-0.045) ng/ml Liver Function 01/22/20 Range/Units 07:32 Total Bilirubin 0.9 (0.2-1) mg/dl AST 19 (15-37) U/L ALT 26 (12-78) U/L Alkaline Phosphatase 93 (45-117) U/L Albumin 3.4 (3.4-5.0) gm/dl ECG Rate (beats per minute): 58 Rhythm: sinus bradycardia Code Status & VTE Plan Code Status Full Code VTE Prophylaxis Plan VTE Prophylaxis will be ordered: Yes Supervising Physician Co-Signing Physician Notes Attending addendum The patient is seen and examined in medical floor He is a 69-year-old obese male with significant past medical history of hypertension, hyperlipidemia, GERD and BPH apparently has been complaining of left lower chest pain with epigastric pain for about 1-1/2-day. Pain was started initially left lower chest and then traveled down to the epigastrium and he felt pain at the back initially. He felt nauseous but no vomiting no diarrhea. He complains of a history of bloated feeling following food for some time. Denies any fever and/or chills. On examination He has minimal pain during examination Hemodynamically stable Chestclear to auscultate bilaterally HeartS1-S2 regular Abdomenbenign, soft, tender in the epigastrium, Trevino sign negative, bowel sounds present Extremities-negative for any edema DUTY OFFICER-alert, awake and oriented x3 Admission labs and imaging studies reviewed Only notable finding was lipase of 1221 He also has a history of dilation of the pancreatic duct on a prior CT scan GI consulted Agree with the assessment and plan as outlined above by Samia tavarez
[2020-01-22] MEDS: LACTATED RINGER'S 1,000 ML IV SCH ×3 (11:37→22:40)
--- NOTE | 2020-01-22 11:46 | Gastrointestinal Consultation ---
Date of Consultation January 22, 2020 Assessment & Plan (1) Acute pancreatitis: This is a 69 y/o male who presents with epigastric/chest pain since Wednesday, found to have acute pancreatitis with lipase > 1200 with normal LFTs/bilirubin/HGB/Cr; GB US with no GB stone, CBD 4 mm. Presently he is afebrile and pain is controlled; he is hemodynamcally stable. Previous CT in 2018 noted a focal calcification at the pancreatic head and top-normal PD diameter at 4 mm. Diff dx = gallstone, pancreatic mass; medication vs other; he doesn't drink ETOH regularly making ETOH pancreatitis less likely; he had normal triglycerides in August and is on a statin making hypertriglyceridemia less likely. - Will obtain MRI abd as well as MRCP to evaluate pancreas/biliary regions more thoroughly - Agree with IV hydration at present - Continue analgesia PRN - Continue antiemetics PRN - Repeat LFTs, lipase, CBC, BMP tomorrow Thank you for allowing us to participate in the care of this patient. Please call with any acute changes, questions or concerns. Please see addendum below with additional recommendation from my supervising physician. Supervising Physician Co-Signing Physician Notes I performed a history and physical examination of the patient today, including specifically on physical exam - soft abdomen. I have discussed the patient's management with the advanced practitioner. Please refer to the nurse practiti tatum's note for the documented findings and plan of care. 69 yrs old male patient admitted with mild acute pancreatitis, unclear etiology. Now improving. Recommend: MRI/MRCP. IV Hydration. Plan for EUS as OP in 4 weeks. History of Present Illness Reason for Consultation: Acute pancreatitis Attending Physician: Angeles Mcrae MD History of Present Illness This is a 69 y/o male with PMHx HTN, HLD, GERD, kidney stones who developed constant sharp epigastric/anterior chest pain along with some nausea on Wednesday; symptoms did not improve and he presented to the ER today. Lipase was found to be > 1200, with normal LFTs, renal fxn, CBC, bilirubin. EKG with sinus erasmo with 1 degree AVB. CXR with no acute changes. GB US showed no GB stone, dennis dil; CBD 4 mm; pancreas largely obscured by bowel gas. Currently he is r eceiving LR at 200 mL/hr. Feels pain somewhat improved with pain meds. GERD is historically controlled with PPI. Denies current nausea, vomiting, hematemesis, hematochezia, melena, johnson stools, dark urine, icterus/jaundice, weight loss, fever. Pt denies any similar previous pain. He drinks alcohol rarely; non recently. Denies a personal or fam hx pancreas/liver diseases. He takes no other OTC meds. Previous noncontrast CTAP performed 11/19/17 demonstrated a top-normal PD at 4 mm with focal calcification of the pancreatic head. F/u MRCP was recommended but pt did not have this done. Recent lipid panel in Aug 2019 with normal trigs. Allergies Allergy/AdvReac Type Severity Reaction Status Date / Time Penicillins Allergy Intermediate HIVES Verified 01/22/20 08:08 Home Medications Home Medications Medication Instructions Recorded Confirmed Type albuterol sulfate 2 - 4 inh INHALATION Q6H PRN 01/22/20 01/22/20 History atorvastatin 20 mg PO HS 01/22/20 01/22/20 History finasteride 5 mg PO DAILY 01/22/20 01/22/20 History lisinopril 20 mg PO DAILY 01/22/20 01/22/20 History pantoprazole 40 mg PO BID 01/22/20 01/22/20 History tamsulosin 0.8 mg PO HS 01/22/20 01/22/20 History Patient History Medical History (Updated 01/22/20 @ 15:39 by NARINDER Arreguin) BPH (benign prostatic hyperplasia) GERD (gastroesophageal reflux disease) (Chronic) HTN (hypertension) Hypercholesteremia (Chronic) Kidney stone (Inactive) Surgical History (Updated 01/22/20 @ 11:27 by Vy Aguilar PA-C) History of colonoscopy History of esophagogastroduodenoscopy (EGD) History of lithotripsy Family History Father Prostate cancer Mother Alive and well Social History (Updated 01/22/20 @ 11:29 by Vy Aguilar PA-C) Preferred Language: Afghan Communication Ability: Effective Beliefs That Will Affect Care: None Current Living Situation: Spouse Other Information That Helps Us Care for You: No Feels Safe at Home: Yes Safety Concerns: Feels Safe At This Time Smoking Status: Never smoker Hx Alcohol Use: Yes Alcohol Intake Frequency: Rarely Hx Substance Use: No Review of Systems Constitutional: no fever, no body aches, no fatigue and no anorexia Eyes: no icterus Respiratory: no cough and no dyspnea Cardiovascular: as per Subjective / HPI; no dyspnea Gastrointestinal: as per Subjective / HPI Genitourinary: no dysuria and no urinary frequency Integumentary: no rash and no yellowing of the skin Physical Exam Constitutional: WD/WN, vitals as above well developed; no acute distress Eyes: no icterus Respiratory: normal respiratory effort, lungs clear to auscultation Cardiovascular: Rate/Rhythm: regular rate and regular rhythm Gastrointestinal (Abdomen): Inspection/Auscultation: abdomen normal to inspection and normal bowel sounds; abdomen not distended Percussion/Palpation: + abdomen tender (moderate epigastric tenderness; no rebound) and abdomen soft; no guarding and abdomen not rigid Skin: no rashes, warm and dry no jaundice Neurologic: no focal motor deficits Psychiatric: A+Ox3, euthymic affect Results & Data ([facility]) Vital Signs (Past 12 Hours) Vital Signs Temp Pulse Pulse Resp BP BP Pulse Ox 01/22/20 11:28 36.8 C 58 L 20 148/81 H 95 01/22/20 11:06 59 L 18 155/76 H 98 01/22/20 09:56 57 L 18 128/72 95 01/22/20 09:05 56 L 20 129/73 95 01/22/20 08:00 59 L 22 141/82 H 96 01/22/20 07:36 96 01/22/20 07:17 36.5 C 55 L 18 161/84 H 97 Laboratory Results 01/22/20 01/22/20 01/22/20 Range/Units 07:32 07:32 07:32 WBC 7.74 (4.8-10.8) K/uL RBC 4.60 L (4.7-6.1) M/uL Hgb 14.7 (14.0-18.0) g/dL Hct 42.7 (42-52) % MCV 92.8 (80-100) fL MCH 32.0 (25-34) pg MCHC 34.4 (32-36) g/dL RDW Std Deviation 43.8 (36.4-46.3) fL RDW Coeff of Aleta 12.9 (11.5-14.5) % Plt Count 179 (130-400) K/uL MPV 9.9 (7.4-10.4) fL Immature Gran % (Auto) 0.1 % Neut % (Auto) 76.3 % Lymph % (Auto) 14.3 % [place] % (Auto) 7.8 % Eos % (Auto) 1.4 % Baso % (Auto) 0.1 % Immature Gran # (Auto) 0.01 (0.00-0.02) K/uL Neut # (Auto) 5.90 (1.4-6.5) K/uL Lymph # (Auto) 1.11 L (1.2-3.4) K/uL [place] # (Auto) 0.60 H (0.11-0.59) K/uL Eos # (Auto) 0.11 (0-0.5) K/uL Baso # (Auto) 0.01 (0-0.2) K/uL PT 10.9 (9.0-12.0) Seconds INR 1.0 (0.9-1.1) APTT 26.2 (21.0-31.0) Seconds PTT Ratio 0.9 Sodium 140 (136-145) mmol/L Potassium 3.8 (3.5-5.1) mmol/L Chloride 107 (98-107) mmol/L Carbon Dioxide 27 (21-32) mmol/L Anion Gap 6.0 (3-11) BUN 19 H (7-18) mg/dl Creatinine 1.01 (0.6-1.4) mg/dl Est Cr Clr Drug Dosing 73.6 ml/min Est GFR ( Amer) 88.8 Est GFR (Non-Af Amer) 76.6 BUN/Creatinine Ratio 18.7 (10-20) Glucose 96 (70-99) mg/dl Calcium 8.5 (8.5-10.1) mg/dl Total Bilirubin 0.9 (0.2-1) mg/dl AST 19 (15-37) U/L ALT 26 (12-78) U/L Alkaline Phosphatase 93 (45-117) U/L Troponin I < 0.015 (0-0.045) ng/ml Total Protein 7.0 (6.4-8.2) gm/dl Albumin 3.4 (3.4-5.0) gm/dl Globulin 3.6 (2.5-4.0) gm/dl Albumin/Globulin Ratio 0.9 (0.9-2) Lipase 1221 H (73-393) U/L
[2020-01-22] MEDS ORDERED: LORazepam 0.5 MG/1 ML VIAL IV STA (14:42)
[2020-01-22] MEDS ORDERED: Nursing to Pharmacy Communication ONE (14:56)
[2020-01-22] MEDS ORDERED: LORazepam 0.5 MG/1 ML VIAL IV SCH (15:15)
--- NOTE | 2020-01-22 15:30 | Electrocardiogram Report ---
Test Reason : Blood Pressure : / mmHG Vent. Rate : 058 BPM Atrial Rate : 058 BPM P-R Int : 218 ms QRS Dur : 096 ms QT Int : 426 ms P-R-T Axes : 056 021 034 degrees QTc Int : 418 ms Sinus bradycardia with 1st degree A-V block Otherwise normal ECG When compared with ECG of 17-NOV-2016 11:32, No significant change was found Confirmed by Davie Mcnally ([id number]) on 01/22/2020 3:30:19 PM Referred By: REFERRED SELF Confirmed By:Davie Mcnally
[2020-01-22] MEDS ORDERED: GADOBUTROL 65ML VIAL IV PRN (16:34)
--- NOTE | 2020-01-22 16:57 | Magnetic Resonance Report ---
MRI OF THE ABDOMEN COMBO; MRCP CLINICAL HISTORY: Pancreatitis. COMPARISON STUDY: Abdominal CT dated 08/19/2015. Abdominal ultrasound dated 01/22/2020. TECHNIQUE: MRI of the abdomen is performed transverse T1 and T2-weighted sequences in the axial and c oronal planes. Contrast enhanced sequences were acquired following the IV administration of 10 cc of Gadavist. Subtraction imaging was performed. High-resolution MRCP images were acquired in the [place] l plane. 3-D reformats are created and assessed. The examination is compromised by motion artifact. FINDINGS: Lower chest: There are trace pleural effusions. The heart is mildly enlarged and without pericardial effusion. There is a small hiatal hernia. Liver: The liver is normal in size, contour, and signal intensity. No intrahepatic biliary ductal dil atation is seen. The hepatic veins and portal veins are patent. Gallbladder/MRCP: The gallbladder is normal in appearance. No gallstones are identified. There is no intra or extrahepatic biliary ductal dilatation. The common bile duct measures up to 5 mm diameter. N o filling defects are identified to suggest choledocholithiasis. The pancreatic duct is mildly dilate d, measuring up to 5 mm the pancreatic head. Spleen: Normal in size and signal intensity. Pancreas: There is minimal peripancreatic edema and fluid consistent with reported clinical history o f acute pancreatitis. The gland enhances homogeneously. No organized peripancreatic fluid collection is identified. The splenic vein is patent. Adrenal glands: Unremarkable. Kidneys: The kidneys are demonstrate mild cortical atrophy and are without hydronephrosis. Numerous p arapelvic cysts are seen bilaterally. The kidneys enhance and excrete symmetrically. Abdominal aorta: Normal in course and caliber. Bowel: Visualized portions of the small bowel and colon show no evidence of obstruction. Peritoneum: There is no abdominal ascites. Lymphadenopathy: None. Skeletal structures: Visualized skeletal structures times are normal marrow signal intensity. IMPRESSION: 1. Motion compromised examination. 2. MRI findings are consistent with mild acute pancreatitis. 3. The pancreas enhances homogeneously. No organized peripancreatic fluid collection is identified. 4. The pancreatic duct is mildly dilated measuring up to 5 mm at the pancreatic head. This is of inde terminant significance and likely unchanged from the 2015 CT scan. 5. Otherwise normal MRCP. No gallstones are identified. There is no intra or extrahepatic biliary alicia eusebio dilatation. 6. Trace pleural effusions. 7. Additional findings as above. ACT 112: Negative or not required by law. Electronically signed by: Hermilo Solomon M.D. 01/22/2020 4:55 PM
[2020-01-22] MEDS: ATORVASTATIN 20 MG TAB PO SCH (20:59)
[2020-01-22] MEDS: TAMSULOSIN HCL 0.4 MG CAP PO SCH (20:59)
[2020-01-22] MEDS: PANTOprazole 40 MG TAB PO SCH (20:59)
[2020-01-22] MEDS: ENOXAPARIN INJ 40 MG/0.4 ML SYR SQ SCH (21:00)
[2020-01-23] MEDS: LACTATED RINGER'S 1,000 ML IV SCH ×5 (03:54→21:28)
[2020-01-23 06:08] LABS: Hematocrit (blood only) 39.1 % (42-52); Hemoglobin 13.4 g/dL (14.0-18.0); Mean Corpuscular Hemoglobin 31.6 pg (25-34); Mean Corpuscular Hgb Conc 34.3 g/dL (32-36); Mean Corpuscular Volume 92.2 fL (80-100); Mean Platelet Volume 9.7 fL (7.4-10.4); Platelet Count 164 K/uL (130-400); RDW Coefficient of Variation 12.7 % (11.5-14.5); RDW Standard Deviation 42.8 fL (36.4-46.3); Red Blood Count 4.24 M/uL (4.7-6.1); White Blood Count 5.88 K/uL (4.8-10.8)
[2020-01-23 06:40] LABS: Albumin Level 2.9 gm/dl (3.4-5.0); BUN Creatinine Ratio 15.9 (10-20); Calcium 8.3 mg/dl (8.5-10.1); Creatinine Clr Calc Pharmacy 91.8 ml/min; Est GFR (African American) 106.6; Potassium 3.8 mmol/L (3.5-5.1)
[2020-01-23 06:43] LABS: Albumin Globulin Ratio 0.9 (0.9-2); Globulin 3.3 gm/dl (2.5-4.0); Total Protein 6.2 gm/dl (6.4-8.2)
--- NOTE | 2020-01-23 06:59 | Hospitalist Progress Note ---
Date of Service January 23, 2020 Assessment & Plan (1) Chest pain: (2) Acute pancreatitis: This is a 69 year old M who has a significant PMH of HTN, HLD, BPH, GERD who presents to ED due to chest pain x 1.5 days In ED he remained hemodynamically stable. Notable lab abnormalities for lipase 1221. CBC and CMP relatively unremarkable. He received 1L IVF while in ED along with IV morphine with improvement in pain. CP likely 2/2 to acute pancreatitis given epigastric tenderness on exam and reproducible chest pain. History of cardiac cath 2 to 3 years ago which was unremarkable. Etiology unknown: no hx of heavy ETOH use, NSAID use, trauma, med induced MedSurg Bowel rest with n.p.o. IVF 200 cc/h LR 0.5 mg Dilaudid q3h as needed for severe pain GI on case RUQ U/S WNL; however pt does complain of occasional RUQ pain after fatty meals ? if pt to benefit from Hida scan as outpt Troponins are negative and Lipase is now Normal (3) HTN (hypertension): BP stable, continue lisinopril with parameters (4) Hypercholesteremia: continue statin fasting lipid panel in a.m. r/o hypertriglyceridemia (5) BPH (benign prostatic hyperplasia): continue flomax and finasteride (6) GERD (gastroesophageal reflux disease): continue PPI bid (7) DVT prophylaxis: Lovenox Disposition: Home today or 01/23 in the AM Follow up: PCP Dr. Will upon discharge ROS-No Headache, No Visual Changes, No Nausea, No Vomiting, No Fever, No Chills, No Neck Pain or Stiffness, No Chest Pain, No Palpitations, No SOB, No [place], No Cough, No Sputum, No Wheezing, No Abdominal Pain, No Diarrhea, No Hematemesis, No Hemoptysis, No Unexpected Weight Loss, No Flank pain, No Melena, No Hematochezia, No Frequency, No Urgency, No Burning, No Hematuria, No Rashes, No Diaphoresis. Appetite is Normal Physical Exam Gen-AAO x 3, NAD, Afebrile Head-NCAT, EOMI, PERRLA, Anicteric Sclera, No Posterior Pharyngeal Erythema Neck-Supple, No JVD, No Thyromegaly, No Masses, No LAD, No Bruits Lungs-Clear to Auscultation Bilaterally, No Rales, No Rhonchi, No Wheezing, No Crepitus Chest-No S4, +S1, +S2, No S3, No Murmurs, No Rubs, No Gallops, No Ectopy Abdomen-Soft, Bowel Sounds Present, Mildly Tender, Non Distended, No Hepatomegaly, No Splenomegaly, No Palpable Masses, No Rebound, No Rigidity, No Guarding Musculoskeletal-Full Range of Motion Bilaterally, No CVAT Extremities-No Cyanosis, No Clubbing, No Edema Nuero-Cranial Nerves II-XII grossly intact, Motor WNL, DTRs WNL, Strength WNL, Non Focal Psych-Normal Mood Admission and Anticipated Discharge Date Admission Date: January 22, 2020 Results & Data ([facility]) Vital Signs (Past 12 Hours) Vital Signs Temp Pulse Resp BP Pulse Ox 01/22/20 22:51 36.7 C 58 L 17 124/74 94 (1) Chest pain Chest pain type: unspecified Qualified Code(s): R07.9 - Chest pain, unspecified (2) Acute pancreatitis Acute pancreatitis complication: unspecified Pancreatitis type: unspecified pancreatitis type Qualified Code(s): K85.90 - Acute pancreatitis without necrosis or infection, unspecified
--- NOTE | 2020-01-23 07:04 | Gastroenterology Progress Note ---
Date of Service January 23, 2020 Assessment & Plan (1) Acute pancreatitis: 69 y/o male who presents with epigastric/chest pain since Wednesday, found to have acute pancreatitis with lipase > 1200 with normal LFTs/bilirubin/HGB/Cr; GB US with no GB stone, CBD 4 mm. Presently he is afebrile and pain is controlled; he is hemodynamcally stable. Previous CT in 2018 noted a focal calcification at the pancreatic head and top-normal PD diameter at 4 mm. Diff dx = gallstone, pancreatic mass; medication vs other; he doesn't drink ETOH regularly making ETOH pancreatitis less likely; he had normal triglycerides in August and is on a statin making hypertriglyceridemia less likely. MRCP yesterday shows mild acute pancreatitis w/o any peripancreatic fluid collection identified. There is persistent pancreatic duct dilation measuring up to 5 mm at the pancreatic head,unchanged from the 2015 CT scan. Otherwise normal MRCP. No gallstones are identified. There is no intra or extrahepatic biliary ductal dilatation. - Continue LR 200 mL/hr - Continue analgesia PRN - Continue antiemetics PRN - Follow AM labs - Consider clear liquids for lunch - OP EGD/EUS in 4-6 weeks for evalation of PD dilation Thank you for allowing us to participate in the care of this patient. Please call with any acute changes, questions or concerns. Please see addendum below with additional recommendation from my supervising physician. Admission and Anticipated Discharge Date Admission Date: January 22, 2020 Supervising Physician Co-Signing Physician Notes I performed a history and physical examination of the patient today, including specifically on physical exam - soft abdomen. I have discussed the patient's management with the advanced practitioner. Please refer to the nurse practitioner's note for the documented findings and plan of care. EUS as OP Recall Gi if needed Subjective Pt was seen and evaluated, chart reviewed ABD pain significantly improved Now just mild, if palpation No nausea, vomiting Passing gas but no BM MRCP: MRI findings are consistent with mild acute pancreatitis.The pancreas e nhances homogeneously. No organized peripancreatic fluid collection is identified.The pancreatic duct is mildly dilated measuring up to 5 mm at the pancreatic head. This is of indeterminant significance and likely unchanged from the 2015 CT scan.Otherwise normal MRCP. No gallstones are identified. There is no intra or extrahepatic biliary ductal dilatation. Review of Systems Eyes: no icterus Cardiovascular: as per Subjective / HPI; no dyspnea Gastrointestinal: as per Subjective / HPI Physical Exam Constitutional: WD/WN, vitals as above Neck: trachea midline Respiratory: normal respiratory effort Cardiovascular: Rate/Rhythm: regular rate Gastrointestinal (Abdomen): normal bowel sounds, soft, nontender, no hepatosplenomegaly Results & Data ([facility]) Vital Signs (Past 12 Hours) Vital Signs Temp Pulse Resp BP Pulse Ox 01/22/20 22:51 36.7 C 58 L 17 124/74 94 Laboratory Results 01/23/20 01/23/20 01/22/20 Range/Units 05:52 05:52 19:21 WBC 5.88 (4.8-10.8) K/uL RBC 4.24 L (4.7-6.1) M/uL Hgb 13.4 L (14.0-18.0) g/dL Hct 39.1 L (42-52) % MCV 92.2 (80-100) fL MCH 31.6 (25-34) pg MCHC 34.3 (32-36) g/dL RDW Std Deviation 42.8 (36.4-46.3) fL RDW Coeff of Aleta 12.7 (11.5-14.5) % Plt Count 164 (130-400) K/uL MPV 9.7 (7.4-10.4) fL Immature Gran % (Auto) % Neut % (Auto) % Lymph % (Auto) % [place] % (Auto) % Eos % (Auto) % Baso % (Auto) % Immature Gran # (Auto) (0.00-0.02) K/uL Neut # (Auto) (1.4-6.5) K/uL Lymph # (Auto) (1.2-3.4) K/uL [place] # (Auto) (0.11-0.59) K/uL Eos # (Auto) (0-0.5) K/uL Baso # (Auto) (0-0.2) K/uL PT (9.0-12.0) Seconds INR (0.9-1.1) APTT (21.0-31.0) Seconds PTT Ratio Sodium 140 (136-145) mmol/L Potassium 3.8 (3.5-5.1) mmol/L Chloride 107 (98-107) mmol/L Carbon Dioxide 27 (21-32) mmol/L Anion Gap 5.0 (3-11) BUN 13 (7-18) mg/dl Creatinine 0.81 (0.6-1.4) mg/dl Est Cr Clr Drug Dosing 91.8 ml/min Est GFR ( Amer) 106.6 Est GFR (Non-Af Amer) 92.0 BUN/Creatinine Ratio 15.9 (10-20) Glucose 74 (70-99) mg/dl Calcium 8.3 L (8.5-10.1) mg/dl Total Bilirubin 1.0 (0.2-1) mg/dl AST 15 (15-37) U/L ALT 21 (12-78) U/L Alkaline Phosphatase 87 (45-117) U/L Troponin I < 0.015 (0-0.045) ng/ml Total Protein 6.2 L (6.4-8.2) gm/dl Albumin 2.9 L (3.4-5.0) gm/dl Globulin 3.3 (2.5-4.0) gm/dl Albumin/Globulin Ratio 0.9 (0.9-2) Triglycerides 81 (0-150) mg/dl Cholesterol 135 (0-200) mg/dl LDL Cholesterol, Calc 84 mg/dl VLDL Cholesterol, Calc 16 mg/dl HDL Cholesterol 35 mg/dl Cholesterol/HDL Ratio 4 Lipase 361 (73-393) U/L 01/22/20 01/22/20 01/22/20 Range/Units 13:25 07:32 07:32 WBC (4.8-10.8) K/uL RBC (4.7-6.1) M/uL Hgb (14.0-18.0) g/dL Hct (42-52) % MCV (80-100) fL MCH (25-34) pg MCHC (32-36) g/dL RDW Std Deviation (36.4-46.3) fL RDW Coeff of Aleta (11.5-14.5) % Plt Count (130-400) K/uL MPV (7.4-10.4) fL Immature Gran % (Auto) % Neut % (Auto) % Lymph % (Auto) % [place] % (Auto) % Eos % (Auto) % Baso % (Auto) % Immature Gran # (Auto) (0.00-0.02) K/uL Neut # (Auto) (1.4-6.5) K/uL Lymph # (Auto) (1.2-3.4) K/uL [place] # (Auto) (0.11-0.59) K/uL Eos # (Auto) (0-0.5) K/uL Baso # (Auto) (0-0.2) K/uL PT 10.9 (9.0-12.0) Seconds INR 1.0 (0.9-1.1) APTT 26.2 (21.0-31.0) Seconds PTT Ratio 0.9 Sodium 140 (136-145) mmol/L Potassium 3.8 (3.5-5.1) mmol/L Chloride 107 (98-107) mmol/L Carbon Dioxide 27 (21-32) mmol/L Anion Gap 6.0 (3-11) BUN 19 H (7-18) mg/dl Creatinine 1.01 (0.6-1.4) mg/dl Est Cr Clr Drug Dosing 73.6 ml/min Est GFR ( Amer) 88.8 Est GFR (Non-Af Amer) 76.6 BUN/Creatinine Ratio 18.7 (10-20) Glucose 96 (70-99) mg/dl Calcium 8.5 (8.5-10.1) mg/dl Total Bilirubin 0.9 (0.2-1) mg/dl AST 19 (15-37) U/L ALT 26 (12-78) U/L Alkaline Phosphatase 93 (45-117) U/L Troponin I < 0.015 < 0.015 (0-0.045) ng/ml Total Protein 7.0 (6.4-8.2) gm/dl Albumin 3.4 (3.4-5.0) gm/dl Globulin 3.6 (2.5-4.0) gm/dl Albumin/Globulin Ratio 0.9 (0.9-2) Triglycerides (0-150) mg/dl Cholesterol (0-200) mg/dl LDL Cholesterol, Calc mg/dl VLDL Cholesterol, Calc mg/dl HDL Cholesterol mg/dl Cholesterol/HDL Ratio Lipase 1221 H (73-393) U/L 01/22/20 Range/Units 07:32 WBC 7.74 (4.8-10.8) K/uL RBC 4.60 L (4.7-6.1) M/uL Hgb 14.7 (14.0-18.0) g/dL Hct 42.7 (42-52) % MCV 92.8 (80-100) fL MCH 32.0 (25-34) pg MCHC 34.4 (32-36) g/dL RDW Std Deviation 43.8 (36.4-46.3) fL RDW Coeff of Aleta 12.9 (11.5-14.5) % Plt Count 179 (130-400) K/uL MPV 9.9 (7.4-10.4) fL Immature Gran % (Auto) 0.1 % Neut % (Auto) 76.3 % Lymph % (Auto) 14.3 % [place] % (Auto) 7.8 % Eos % (Auto) 1.4 % Baso % (Auto) 0.1 % Immature Gran # (Auto) 0.01 (0.00-0.02) K/uL Neut # (Auto) 5.90 (1.4-6.5) K/uL Lymph # (Auto) 1.11 L (1.2-3.4) K/uL [place] # (Auto) 0.60 H (0.11-0.59) K/uL Eos # (Auto) 0.11 (0-0.5) K/uL Baso # (Auto) 0.01 (0-0.2) K/uL PT (9.0-12.0) Seconds INR (0.9-1.1) APTT (21.0-31.0) Seconds PTT Ratio Sodium (136-145) mmol/L Potassium (3.5-5.1) mmol/L Chloride (98-107) mmol/L Carbon Dioxide (21-32) mmol/L Anion Gap (3-11) BUN (7-18) mg/dl Creatinine (0.6-1.4) mg/dl Est Cr Clr Drug Dosing ml/min Est GFR ( Amer) Est GFR (Non-Af Amer) BUN/Creatinine Ratio (10-20) Glucose (70-99) mg/dl Calcium (8.5-10.1) mg/dl Total Bilirubin (0.2-1) mg/dl AST (15-37) U/L ALT (12-78) U/L Alkaline Phosphatase (45-117) U/L Troponin I (0-0.045) ng/ml Total Protein (6.4-8.2) gm/dl Albumin (3.4-5.0) gm/dl Globulin (2.5-4.0) gm/dl Albumin/Globulin Ratio (0.9-2) Triglycerides (0-150) mg/dl Cholesterol (0-200) mg/dl LDL Cholesterol, Calc mg/dl VLDL Cholesterol, Calc mg/dl HDL Cholesterol mg/dl Cholesterol/HDL Ratio Lipase (73-393) U/L (1) Acute pancreatitis Acute pancreatitis complication: unspecified Pancreatitis type: unspecified pancreatitis type Qualified Code(s): K85.90 - Acute pancreatitis without necrosis or infection, unspecified
[2020-01-23] MEDS: FINASTERIDE 5 MG TAB PO SCH (07:36)
[2020-01-23] MEDS: lisinopriL 20 MG TAB PO SCH (07:36)
[2020-01-23] MEDS: PANTOprazole 40 MG TAB PO SCH ×2 (07:37→20:23)
[2020-01-23] MEDS: ATORVASTATIN 20 MG TAB PO SCH (20:22)
[2020-01-23] MEDS: ENOXAPARIN INJ 40 MG/0.4 ML SYR SQ SCH (20:22)
[2020-01-23] MEDS: TAMSULOSIN HCL 0.4 MG CAP PO SCH (20:23)
[2020-01-24] MEDS: LACTATED RINGER'S 1,000 ML IV SCH ×2 (02:32→07:31)
[2020-01-24 07:14] LABS: Mean Corpuscular Hgb Conc 34.2 g/dL (32-36); Mean Corpuscular Volume 90.7 fL (80-100); Mean Platelet Volume 10.1 fL (7.4-10.4); Platelet Count 163 K/uL (130-400); RDW Coefficient of Variation 12.6 % (11.5-14.5); Red Blood Count 4.19 M/uL (4.7-6.1); White Blood Count 5.41 K/uL (4.8-10.8)
[2020-01-24 07:50] LABS: Albumin Level 2.9 gm/dl (3.4-5.0); BUN Creatinine Ratio 16.6 (10-20); Calcium 8.7 mg/dl (8.5-10.1); Creatinine Clr Calc Pharmacy 81.7 ml/min; Est GFR (African American) 100.7; Est GFR (Non-African American) 86.9; Potassium 3.8 mmol/L (3.5-5.1)
[2020-01-24 07:52] LABS: Albumin Globulin Ratio 0.9 (0.9-2); Bilirubin,Total 0.8 mg/dl (0.2-1); Globulin 3.3 gm/dl (2.5-4.0); Total Protein 6.2 gm/dl (6.4-8.2)
[2020-01-24] MEDS: PANTOprazole 40 MG TAB PO SCH (08:26)
[2020-01-24] MEDS: lisinopriL 20 MG TAB PO SCH (08:26)
[2020-01-24] MEDS: FINASTERIDE 5 MG TAB PO SCH (08:27)
--- NOTE | 2020-01-24 11:34 | Discharge Summary ---
Date of Service January 24, 2020 Admission HPI Per Admitting Provider This is a 69 year old M who has a significant PMH of HTN, HLD, BPH, GERD who presents to ED due to chest pain x 1.5 days. Chest pain is located LACW with occasional radiation to RACW and L side of neck. Pain is constant, waxes and wanes in severity, worse 8/10, currently 4/10, described as sharp and stabbing at worst. Has tried nothing OTC to help sx. IV morphine improved pain. Has never had in past. Associated with nausea and SOB for the past 1 day. He denies f/c/s, dizzy, lightheaded, palpitations, cough, hemoptysis, emesis, abdominal pain, change in bowel or urinary habits. Last BM this morning, normal no melena. Appetite has been normal. No prior hx of pancreatitis. No hx of abdominal surgery. +hx of GERD on PPI. EGD few years ago revealed mild irritation. States occasionally after fatty meals he will get RUQ abdominal discomfort. is at bedside. Of significance approx 2 weeks ago he did have URI with productive cough and feverish but this has since resolved. In ED he remained hemodynamically stable. Notable lab abnormalities for lipase 1221. CBC and CMP relatively unremarkable. He received 1L IVF while in ED along with IV morphine with improvement in pain. Admission Exam Per Admitting Provider Constitutional: WD/WN, vitals as above, NAD, sitting up in bed, pleasant, conversing easily Head: Normocephalic, Atraumatic Eyes: PERRL, conjunctivae normal, anicteric sclerae ENMT: external ear and nose normal, oropharynx normal Neck: trachea midline, no thyromegaly normal visual inspection Respiratory: normal respiratory effort, lungs clear to auscultation, no wheeze, rales, rhonchi. Normal insp/exp effort, no accessory muscle use Cardiovascular: RRR, no murmur, no edema Vessels: no JVD or carotid bruit Chest: normal inspection of chest , + LACW pain to palpation. Pain reproducible Abdomen: normal bowel sounds, +Epigastric tenderness with mild rebound, no guarding or rigidity, nontender, no hepatosplenomegaly Musculoskeletal: no cyanosis or clubbing, extremities motor strength 5/5 Skin: no rashes, warm and dry normal turgor Neurologic: PERRL, EOMI, accommodation nl, no face palsy, no dysarthria CN's II-XI intact bilaterally and moves all extremities Psychiatric: A+Ox3, euthymic affect Lymphatic: no cervical or axillary lymphadenopathy : deferred Principal Diagnosis acute pancreatitis Discharge Exam CONSTITUTIONAL: WNWD, vitals as above, generally well-appearing EYES: normal conjunctivae, no scleral icterus ENT: external ear and nose normal, oropharynx clear,MMM RESPIRATORY: clear to auscultation bilaterally, no crackles, rales or wheezes, normal respiratory effort CARDIOVASCULAR: regular rate and rhythm, S1 and 2 heard without murmurs, gallops or rubs, no JVD, no peripheral edema GASTROINTESTINAL: soft, nontender, nondistended MUSCULOSKELETAL: strength 5/5 throughout, head is normocephalic and atraumatic SKIN: warm and dry NEUROLOGIC: CN 2-12 grossly intact, no sensory deficit, normal cognition, no gross focal deficits. PSYCHIATRIC: alert cooperative and oriented to person, place and time. Discharge Data Allergies Allergy/AdvReac Type Severity Reaction Status Date / Time Penicillins Allergy Intermediate HIVES Verified 01/22/20 08:08 Consultations 01/22/20 10:23 ED Decision to Admit Stat 01/22/20 10:36 Consult Gastroenterology Routine Ordered Studies 01/22/20 08:07 US gallbladder Stat 01/22/20 11:50 MR abdomen wo/w con Urgent Hospital Course (1) Chest pain: (2) Acute pancreatitis: 69-year-old nonalcoholic man presents with acute pancreatitis. He was admitted to the hospitalist service and started on lactated Ringer's at 200 cc an hour. Gastroenterology was consulted and pursued a work-up including a gallbladder ultrasound which revealed no evidence of cholelithiasis or biliary ductal dilation and an MRCP with an MRI of the abdomen, combo. Results of this study revealed pancreatic edema consistent with acute pancreatitis with mild dilation of the pancreatic duct up to 5 mm at the pancreatic head. This appeared unchanged in the 2015 CT scan and is of indeterminate significance. Otherwise the MRCP was normal revealing no evidence of gallstones and no evidence of intra-or extra salivary hepatic biliary ductal dilation. The patient had normal kidney function and electrolytes throughout his entire hospitalization. His initial lipase was 1221 which improved to 361 with supportive care including IV fluids. On hospital day 2 his symptoms completely resolved and he was tolerating regular food reliably. At time of discharge he had no abdominal pain which was consistent with his exam. At time of discharge she was hemodynamically stable and afebrile and tolerating p.o. He was mentating and ambulating at baseline and oxygenating well on room air. He was discharged in stable condition with close primary care follow-up recommended and follow-up with GI in 4 to 6 weeks for consideration of an upper EGD/EUS. Indication for this test would be to further investigate his pancreatic duct dilation which was seen on MR imaging. Total Time Total Time Spent Total Time Spent (In Minutes): 60 Total Time Includes: Examination of the Patient, Discharge Planning, Medication Reconciliation and Communication With Other Providers Discharge Plan Discharge Items Patient Disposition: Home - Self-Care Reason For Visit: ACUTE PANCREATITIS Discharge Diagnosis: Acute pancreatitis Condition on Discharge: Good Activity: Resume your previous activity Non-emergency contact: Primary Care Provider Call non-emergency contact if: you have any medication questions, your symptoms worsen, your pain is not controlled, your pain is worsening, your pain is unusual for you, your pain is concerning for you and you have a fever Follow-up/Referrals: Collins Will DO [Primary Care Provider] - 01/30/20 10:55 am (if you cannot keep this appt, please phone the office [phone]) Diet: Low Sodium (2gm) Addtl Attending Provider Instructions: Please continue all medications as instructed on discharge list below. It is recommended that you follow-up with your primary care provider within one week of discharge to ensure no symptoms have returned since discharge. This is also important to discuss any outpatient follow-up with [facility]astroenterology. It is recommended that you have an outpatient follow-up with [facility] Gastroenterology to pursue and upper endoscopy [facility] endoscopic ultrasound in 4-6 weeks time to evaluate your pancreatic ductal dilation further. Someone should be contacting you from this office to set this up. It was a pleasure taking care of you! Please call if you have any questions or problems. You can reach a [facility] hospitalist on duty at [facility] 24 hours a day by calling [phone]. Take care of yourself. Ann Wilson DO [facility] Hospitalist Pending Studies at Discharge: No Stand-Alone Forms: My [facility], Smoking Cessation Medications and DC Order Prescriptions: Continued atorvastatin 20 mg Tablet 20 mg PO HS RF: 0 tamsulosin 0.4 mg Capsule 0.8 mg PO HS RF: 0 pantoprazole 40 mg Tablet,Delayed Release (Dr/Ec) 40 mg PO BID RF: 0 albuterol sulfate 90 mcg/actuation Aerosol Powdr Breath Activated 2 - 4 inh INHALATION Q6H PRN (Reason: Shortness Of Breath) RF: 0 lisinopril 20 mg Tablet 20 mg PO DAILY RF: 0 finasteride 5 mg Tablet 5 mg PO DAILY RF: 0 Discharge Orders: Discharge Order (Routine); Ordered 01/24/20 Ordered By: Ann Wilson Admission Data Admit Date/Time: 01/22/20 10:36 Attending Provider: Ann Wilson Admit Provider: Angeles Mcrae Primary Care Provider: Collins Will Other Providers: Ayesha De Los Santos ; Angeles Mcrae
== END 2020-01-24 15:18 | disposition home or self-care (01) | DRG 440 ==
LOC: ED 07:16 → 2N 10:36 → SUATTDRO 10:36 → 2N 11:06

== ENCOUNTER 2020-12-11 17:25 | Observation (INO) ==
[2020-12-11 17:56] LABS: Basophils # (auto) 0.01 K/uL (0-0.2); Basophils % (auto) 0.1 %; Eosinophils # (auto) 0.15 K/uL (0-0.5); Eosinophils % (auto) 1.6 %; Hematocrit (blood only) 42.4 % (42-52); Hemoglobin 14.7 g/dL (14.0-18.0); Immature Granulocytes # (auto) 0.02 K/uL (0.00-0.02); Immature Granulocytes % (auto) 0.2 %; Lymphocytes # (auto) 1.51 K/uL (1.2-3.4); Lymphocytes % (auto) 16.3 %; Mean Corpuscular Hemoglobin 31.8 pg (25-34); Mean Corpuscular Hgb Conc 34.7 g/dL (32-36); Mean Corpuscular Volume 91.8 fL (80-100); Mean Platelet Volume 10.3 fL (7.4-10.4); Monocytes # (auto) 0.46 K/uL (0.11-0.59); Neutrophils # (auto) 7.13 K/uL (1.4-6.5); Neutrophils % (auto) 76.8 %; Platelet Count 184 K/uL (130-400); RDW Coefficient of Variation 13.2 % (11.5-14.5); RDW Standard Deviation 44.1 fL (36.4-46.3); Red Blood Count 4.62 M/uL (4.7-6.1); White Blood Count 9.28 K/uL (4.8-10.8)
[2020-12-11 18:03] LABS: Alanine Aminotransferase 28 U/L (12-78); Albumin Level 3.6 gm/dl (3.4-5.0); Aspartate Aminotransferase 19 U/L (15-37); BUN Creatinine Ratio 16.7 (10-20); Blood Urea Nitrogen 18 mg/dl (7-18); Calcium 8.6 mg/dl (8.5-10.1); Carbon Dioxide 29 mmol/L (21-32); Chloride 107 mmol/L (98-107); Creatinine Clr Calc Pharmacy 68.8 ml/min; Est GFR (African American) 81.3; Est GFR (Non-African American) 70.2; Glucose 117 mg/dl (70-99); Lipase 974 U/L (73-393); Potassium 3.9 mmol/L (3.5-5.1); Sodium 141 mmol/L (136-145)
[2020-12-11 18:08] LABS: Albumin Globulin Ratio 1.1 (0.9-2); Alkaline Phosphatase 85 U/L (45-117); Bilirubin,Total 0.5 mg/dl (0.2-1); Globulin 3.3 gm/dl (2.5-4.0); Total Protein 6.9 gm/dl (6.4-8.2); Troponin I < 0.015 ng/ml (0-0.045)
[2020-12-11 18:09] LABS: Partial Thromboplastin Ratio 0.9; Partial Thromboplastin Time 24.3 Seconds (21.0-31.0); Prothrombin Time 10.7 Seconds (9.0-12.0)
--- NOTE | 2020-12-11 18:09 | XRay Report ---
SINGLE VIEW CHEST CLINICAL HISTORY: Atypical chest pain. FINDINGS: An AP, portable, upright chest radiograph is compared to study dated 01/22/2020. The examinat ion is degraded by portable technique and apical lordotic positioning. The heart is mildly enlarged. The pulmonary vasculature is noncongested. There is mild bibasilar atelectasis. The lungs and pleural spaces are otherwise clear. No pneumothorax is seen. The skeletal structures are osteopenic. The bon y thorax is grossly intact. IMPRESSION: Mild cardiac enlargement with no acute cardiopulmonary abnormality. ACT 112: Negative or not required by law. Electronically signed by: Hermilo Solomon M.D. 12/11/2020 6:07 PM
[2020-12-11 18:14] LABS: D Dimer 590 ug/L FEU (0-500)
--- NOTE | 2020-12-11 18:18 | Emergency Department Note ---
Impression & Plan Chest pain ED Provider Note Provider: José Miguel Reyes MD DATE OF SERVICE:12/11/2020 CHIEF COMPLAINT: Chest pain HISTORY OF PRESENT ILLNESS: Patient is a 70-year-old gentleman history of pancreatitis, hypertension, hyperlipidemia, and GERD presenting here today complaining of onset around 11 AM while in the office at work of some left-sided chest discomfort just below the left breast. Little bit of tenderness. Nonpleuritic in nature. States he only had a little bit of a cough and some s hortness of breath with exertion and this is unchanged. Denies exertional change in his pain or chest pain otherwise. Denies any radiation of the arm back neck abdomen or jaw. Denies any nausea or vomiting or abdominal discomfort at this point. Patient denies recent URI symptoms or fever. Denies any leg swelling or travel recently. Patient states he did not try thing at home try to wait it out but the pain persisted so called 911. The ambulance in route gave him 324 mg of aspirin (he does not normally take aspirin daily) as well as 3 dose of nitro which he does not really think had much of an effect. States he had a cardiac catheterization in approximately 2014 that was reassuring. Denies other significant cardiac history. Patient says of a prior history of pancreatitis but this does not feel the same. Patient denies any rashes. REVIEW OF SYSTEMS: A total of 10 review of systems was obtained and negative except as stated above in the HPI. PAST MEDICAL HISTORY: As noted above MEDICATIONS: Reviewed home medication list SOCIAL HISTORY: Works at a local [employer] ([employer]), non-smoker Family history: Denies significant cardiac history/IN PHYSICAL EXAM: GENERAL: alert and oriented in no acute distress on stretcher Head: normocephalic and atraumatic EYES: No injection, discharge or icterus. NECK: Trachea midline. LUNGS: Airway patent. No retractions. Breath sounds clear HEART: Regular rate and rhythm. There is some very slight left fifth rib tenderness in the midclavicular line to the mid axillary line without significant overlying rash ABDOMEN: Soft and non-tender, without guarding or rebound. SKIN: Acyanotic, warm, dry, without rashes EXTREMITIES: Without swelling, tenderness or deformity NEUROLOGICAL: No focal deficits. No aphasia. No facial droop or slurred speech. EK bpm sinus rhythm with first-degree AV block. No PVC or PAC. No acute ST segment elevation noted. There is some slight artifact in the EKG but do not see ST segment depression. QTC within normal limits. Compared to previous from January 22, 2020 no significant change CONTINUOUS CARDIAC MONITORING: was ordered and showed a heart rate of 62 bpm in normal sinus rhythm Patient's laboratory studies and imaging reviewed. Differential includes Cardiac ischemia, aortic dissection, pulmonary embolism, pneumothorax, pneumonia, pericarditis, myocarditis, esophageal rupture, GERD, cholecystitis, pancreatitis, musculoskeletal, as well as other pathologies. IMPRESSION/MEDICAL DECISION MAKING: Patient presents onset 11 AM while at rest of some slight left-sided discomfort. No rash consistent with shingles. Rates it a 6 out of 10. No other radiation of pain. Denies abdominal pain or nausea. States he does not feel like prior episode of pancreatitis. EKG without significant change. Received aspirin and 3 doses of nitroglycerin prior to arrival without significant change. Patient with prior cardiac catheterization 2014 without severe disease noted. No leg swelling or recent travel. No other URI symptoms doubt this represents coronavirus. Patient states he has a little bit of chronic shortness of breath that is not really changed. Chest x-ray without significant evidence of pneumonia or pneumothorax. No significant pulmonary edema appreciated. D-dimer sent to help rule out PE and this was somewhat elevated and this discussed with the patient completing a CT of the chest. Lower suspicion given the location of the pain and lack of other radiation this is acute aortic dissection. Lipase was also somewhat elevated 974 and although this is somewhat atypical presentation for pancreatitis CT of the abdomen pelvis was also completed given his history of pancreatitis. No evidence of an elevated troponin on the initial troponin 6.5 hrs after symptoms started. No evidence of acute hepatitis or elevated bilirubin for obstructive pathology. Again has a benign abdomen on exam. Electrolytes without significant abnormality and renal function stable. Patient without significant leukocytosis or anemia here. Patient declined pain medication initially but again did receive 324 mg of aspirin prior to arrival. CT the chest and abdomen pelvis per radiology report without evidence of acute PE. No significant intrathoracic pathologies were noted. Intra-abdominal he the question possible mild diverticulitis with the patient has no symptomatology is here and doubt this clinically. 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 Do not believe this is causing his symptoms today. No evidence of acute pancreatitis or other acute intra-abdominal pathology is noted on the CT scan per radiology. Discussed with patient findings. Patient was given some Tylenol for pain. Patient is a moderate risk heart score based on age and comorbidities. Discussed with him close outpatient follow-up versus further observation here in the hospital. Again not the best story for cardiac chest pain with some reproducibility on the chest wall but does have history of some mild disease on cath in 2015 and discussed with him heart score findings. In shared decision-making he wished for further observation here. Discussed with him we could also be at the early stages of oncoming pancreatitis as his lipase may elevate going forward as it is already slightly elevated in the 900s. Again he wished to be observed here and ensure no further cardiac or pancreatic issues requiring acute attention develop. Patient is also scheduled for upcoming shoulder surgery over the next several weeks and would prefer to ensure he is stable from a heart physician to proceed with this. Hospitalist alerted DIAGNOSIS: Left-sided chest pain DISPOSITION: Hospitalist will evaluate Patient was agreeable with this plan. Past Med/Surg History Medical History BPH (benign prostatic hyperplasia) GERD (gastroesophageal reflux disease) HTN (hypertension) Hypercholesteremia Kidney stone HX Osteoarthritis SOBOE (shortness of breath on exertion) A LITTLE WITH 1 FLIGHT Surgical History History of cardiac catheterization 2014 @ [facility]. Done due to + stress test. 20-30% proximal LMCA narrowing, no stents placed. Possible mild . False + stress test. History of colonoscopy History of esophagogastroduodenoscopy (EGD) History of foot surgery RIGHT History of lithotripsy History of repair of rotator cuff LEFT Nausea and vomiting after administration of anesthetic agent Family History Father Prostate cancer Mother Alive and well Social History (Updated 11/21/20 @ 11:26 by Tricia Souza RN) Smoking Status: Never smoker Second Hand Exposure: No; Hx Alcohol Use: Yes Alcohol type: beer Hx Substance Use: No Preferred Language: Thai Communication Ability: Effective Devops Solutions Architect Required: No Beliefs That Will Affect Care: None Current Living Situation: Spouse current occupation: SELF EMPLOYED Feels Safe at Home: Yes Assistive Devices: Glasses Allergies Allergies Allergy/AdvReac Type Severity Reaction Status Date / Time Penicillins Allergy Intermediate Hives Verified 12/11/20 18:13 Home Meds Home Medications Medication Instructions Recorded Confirmed albuterol sulfate 2 - 4 inh INHALATION Q6H PRN 01/22/20 12/11/20 atorvastatin 20 mg PO HS 01/22/20 12/11/20 finasteride 5 mg PO QPM 01/22/20 12/11/20 lisinopril 20 mg PO QAM 01/22/20 12/11/20 pantoprazole 40 mg PO HS 01/22/20 12/11/20 tamsulosin 0.4 mg PO HS 01/22/20 12/11/20 ibuprofen 200 mg PO Q6H PRN 11/21/20 12/11/20 Results & Data (ED) Vital Signs Vital Signs - 24 hr 12/11/20 17:29 12/11/20 17:30 12/11/20 18:00 Temperature 37.1 C Temperature Source Oral Pulse Rate 64 69 66 Pulse Rate [Right Finger] Pulse Rate from SpO2 Sensor 74 70 Respiratory Rate 17 21 Blood Pressure 140/74 125/72 113/53 L Blood Pressure [Right Arm] Blood Pressure Mean 96 89 73 Blood Pressure Mean [Right Arm] Pulse Oximetry 99 94 93 Oxygen Delivery Method Room Air Sepsis Recent Fever Within 48 Hours No Sepsis New/Unexplained Change in Mental Status N/A Sepsis Action Taken by Nursing No Action Required 12/11/20 19:28 12/11/20 20:14 12/11/20 20:46 Temperature Temperature Source Pulse Rate Pulse Rate [Right Finger] 64 63 60 Pulse Rate from SpO2 Sensor Respiratory Rate 19 16 16 Blood Pressure Blood Pressure [Right Arm] 103/62 105/68 109/69 Blood Pressure Mean Blood Pressure Mean [Right Arm] 75 80 82 Pulse Oximetry 94 95 95 Oxygen Delivery Method Room Air Sepsis Recent Fever Within 48 Hours Sepsis New/Unexplained Change in Mental Status Sepsis Action Taken by Nursing Laboratory Data Result diagrams: 12/11/20 17:35 12/11/20 17:35 Lab Results 12/11/20 12/11/20 12/11/20 Range/Units 17:35 17:35 17:35 WBC 9.28 (4.8-10.8) K/uL RBC 4.62 L (4.7-6.1) M/uL Hgb 14.7 (14.0-18.0) g/dL Hct 42.4 (42-52) % MCV 91.8 (80-100) fL MCH 31.8 (25-34) pg MCHC 34.7 (32-36) g/dL RDW Std Deviation 44.1 (36.4-46.3) fL RDW Coeff of Aleta 13.2 (11.5-14.5) % Plt Count 184 (130-400) K/uL MPV 10.3 (7.4-10.4) fL Immature Gran % (Auto) 0.2 % Neut % (Auto) 76.8 % Lymph % (Auto) 16.3 % [facility] % (Auto) 5.0 % Eos % (Auto) 1.6 % Baso % (Auto) 0.1 % Neut # (Auto) 7.13 H (1.4-6.5) K/uL Lymph # (Auto) 1.51 (1.2-3.4) K/uL [facility] # (Auto) 0.46 (0.11-0.59) K/uL Eos # (Auto) 0.15 (0-0.5) K/uL Baso # (Auto) 0.01 (0-0.2) K/uL Immature Gran # (Auto) 0.02 (0.00-0.02) K/uL PT 10.7 (9.0-12.0) Seconds INR 1.0 (0.9-1.1) APTT 24.3 (21.0-31.0) Seconds PTT Ratio 0.9 D-Dimer 590 H* (0-500) ug/L FEU Sodium 141 (136-145) mmol/L Potassium 3.9 (3.5-5.1) mmol/L Chloride 107 (98-107) mmol/L Carbon Dioxide 29 (21-32) mmol/L Anion Gap 4.0 (3-11) BUN 18 (7-18) mg/dl Creatinine 1.08 (0.6-1.4) mg/dl Est Cr Clr Drug Dosing 68.8 ml/min Est GFR ( Amer) 81.3 Est GFR (Non-Af Amer) 70.2 BUN/Creatinine Ratio 16.7 (10-20) Glucose 117 H (70-99) mg/dl Calcium 8.6 (8.5-10.1) mg/dl Total Bilirubin 0.5 (0.2-1) mg/dl AST 19 (15-37) U/L ALT 28 (12-78) U/L Alkaline Phosphatase 85 (45-117) U/L Troponin I < 0.015 (0-0.045) ng/ml Total Protein 6.9 (6.4-8.2) gm/dl Albumin 3.6 (3.4-5.0) gm/dl Globulin 3.3 (2.5-4.0) gm/dl Albumin/Globulin Ratio 1.1 (0.9-2) Lipase 974 H (73-393) U/L Administered Medications Discontinued Medications Acetaminophen (Acetaminophen 500 Mg Tab) 1,000 mg PO NOW STA Stop: 12/11/20 20:36 Last Admin: 12/11/20 20:45 Dose: 1,000 mg Documented by: [id number] Ioversol (Optiray 320 125ml) 121 ml IV ONCE ONE Stop: 12/11/20 19:49 Last Admin: 12/11/20 19:48 Dose: 121 ml Documented by: [id number] Discharge Plan Visit Data Chief Complaint: Chest Pain Stated Complaint: CHEST PAIN, SOB ED Provider: José Miguel Reyes Discharge Problem: Chest pain Patient Disposition: Being Evaluated by Hospitalist Forms Stand Alone Forms: My [facility] Prescriptions Prescriptions: No Action atorvastatin 20 mg Tablet 20 mg PO HS RF: 0 tamsulosin 0.4 mg Capsule 0.4 mg PO HS RF: 0 pantoprazole 40 mg Tablet,Delayed Release (Dr/Ec) 40 mg PO HS RF: 0 albuterol sulfate 90 mcg/actuation Aerosol Powdr Breath Activated 2 - 4 inh INHALATION Q6H PRN (Reason: Shortness Of Breath) RF: 0 lisinopril 20 mg Tablet 20 mg PO QAM RF: 0 finasteride 5 mg Tablet 5 mg PO QPM RF: 0 ibuprofen 200 mg Tablet 200 mg PO Q6H PRN (Reason: Pain) RF: 0 Referrals Referrals: Collins Will DO [Primary Care Provider] - Discharge Problem: Chest pain Qualifiers: Chest pain type: unspecified Qualified Code(s): R07.9 - Chest pain, unspecified
[2020-12-11] MEDS ORDERED: OPTIRAY 320 125ml IV ONE (19:48)
--- NOTE | 2020-12-11 20:21 | CT Scan Report ---
CT ANGIOGRAM OF THE CHEST; CT SCAN OF THE ABDOMEN AND PELVIS WITH IV CONTRAST CLINICAL HISTORY: Atypical chest pain. Generalized abdominal pain. Mildly elevated lipase. COMPARISON STUDY: Chest CT dated 08/19/2015. Abdominal MRI dated 01/22/2020. TECHNIQUE: Following the IV administration of 121 of Optiray 320, CT angiogram of the chest is perfor med from the upper abdomen to the thoracic inlet utilizing the pulmonary embolus protocol. Images are reviewed in the axial, sagittal, coronal planes. 3-D MIPS images are created and assessed. Subsequen tly, CT scan of the abdomen and pelvis was performed from the lung bases to the proximal femora. Imag es are reviewed in the axial, sagittal, and coronal planes. IV contrast was administered without comp lication. A dose lowering technique was utilized adhering to the principles of ALARA. CT DOSE: 1250.38 mGy.cm FINDINGS: CHEST: Thyroid: Imaged portions of the thyroid gland are normal in size and attenuation. Thoracic aorta: The thoracic aorta is normal in caliber and demonstrates standard 3-vessel arch anato my. No dissection is seen. Pulmonary vasculature: The pulmonary trunk is normal in caliber. There are no filling defects identif ied in the main, lobar, or segmental pulmonary arteries to indicate pulmonary embolus. Heart: The heart is enlarged and without pericardial effusion. Lungs and pleural spaces: There is no airspace consolidation or pleural effusion. A 3 mm right upper lobe pulmonary nodule seen on image #241 is unchanged from 2015 and of doubtful significance. The tra michell and central airways are clear. Mediastinum: There is no mediastinal lymphadenopathy. There are calcified mediastinal nodes. Ivelisse: No hilar adenopathy is identified. There are calcified right hilar nodes. Axillae: There is no axillary lymphadenopathy. Bony thorax: The skeletal structures are osteopenic. Degenerative change is seen in the shoulders and thoracic spine. No lytic or blastic lesions are identified. ABDOMEN AND PELVIS: Liver: The contrast-enhanced liver is normal in size, contour, and attenuation. There is no intrahepa tic or ductal dilatation. The hepatic veins and portal veins are patent. Gallbladder: Unremarkable. Spleen: Normal in size and attenuation. There are numerous calcified splenic granulomas. Pancreas: The pancreas is normal in size and enhances homogeneously. No peripancreatic inflammation o r fluid is identified. There is a 10 mm round hypervascular lesion identified in the pancreatic tail on image #159. A calcification is noted in the pancreatic head. Adrenal glands: Unremarkable. Kidneys: The contrast enhanced kidneys demonstrate mild cortical atrophy and are without hydronephros is. There are numerous bilateral peripelvic cysts. The kidneys enhance symmetrically. There are small bilateral nonobstructing renal calculi. Abdominal vasculature: The abdominal aorta is normal in course and caliber noting mild atheroscleroti c calcification. Stomach and bowel: There is a small hiatal hernia. There is moderate to advanced sigmoid diverticulos is. There is mild wall thickening and pericolonic inflammation involving the proximal sigmoid colon c onsistent with mild acute diverticulitis. No rest fluid collection is seen to suggest abscess. There is no bowel obstruction. The appendix is not visualized. Peritoneum: There is no intraperitoneal free air or abdominal ascites. There is a moderate fat-contai bridgette umbilical hernia. Lymphadenopathy: None. Pelvic viscera: The prostate gland is mildly enlarged and heterogeneous noting median lobe hypertroph y. The bladder wall is thickened and trabeculated indicating chronic outlet obstruction. There is a f at-containing left inguinal hernia. Skeletal structures: The skeletal structures are osteopenic. There is moderate lumbosacral spondylosi s. Degenerative change and sclerosis is seen in the sacroiliac joints. No lytic or blastic lesions ar e seen. IMPRESSION: 1. There is no evidence of pulmonary embolus in the main, lobar, or segmental pulmonary arteries. 2. Cardiomegaly. 3. There is no airspace consolidation or pleural effusion. 4. Moderate to advanced colonic diverticulosis with evidence of mild acute sigmoid diverticulitis. 5. No intraperitoneal free air is identified and no organized fluid collection is seen to suggest abs cess. 6. There is no CT evidence of acute pancreatitis as clinically queried. 7. There is a 10 mm round hypervascular lesion in the pancreatic tail. 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 GI follow-up is recommended. 8. Bilateral nephrolithiasis. 9. Additional findings as above. ACT 112: Positive. There are findings on this exam that require communication between the performing entity and the patient following Patient Test Result Information Act ([place] Act 112) guidelines. Electronically signed by: Hermilo Solomon M.D. 12/11/2020 8:20 PM
[2020-12-11] MEDS ORDERED: ACETAMINOPHEN 500 MG TAB PO STA (20:35)
[2020-12-11] MEDS ORDERED: LACTATED RINGER'S 1,000 ML IV ONE (20:51)
--- NOTE | 2020-12-11 21:23 | History & Physical Report ---
Date of Service December 11, 2020 Assessment & Plan (1) Chest pain: Please refer to Dr. Sanchez's addendum for assessment and plan. History of Present Illness Chief Complaint: Chest pain Primary Care Provider: Collins Will DO 70-year-old male with PMH HLD, HTN, BPH, GERD, idiopathic pancreatitis, cardiac cath 2015 showing mild disease, and other problems to below who presents the ED for evaluation of chest pain. Patient reports that around 11:00 this morning, he developed a pain in his left lateral chest. He reports pain has been persistent throughout the day. Had a few episodes when the pain got acutely worse. No specific causative or alleviating factors. Patient notes some mild worsening exertional shortness of breath for the past few months. Denies lightheadedness, dizziness, diaphoresis, syncopal events. No abdominal pain, nausea, vomiting, diarrhea. Denies any other recent illnesses, fevers, chills. No urinary symptoms. In the ED, initial troponin is negative and EKG does not show any acute ST changes. D-dimer elevated, CTA chest negative for PE. Lipase 974. 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 Patient was given Tylenol and IVF. Allergies Allergy/AdvReac Type Severity Reaction Status Date / Time Penicillins Allergy Intermediate Hives Verified 12/11/20 18:13 Home Medications Medication Instructions Recorded Confirmed Type albuterol sulfate 2 - 4 inh INHALATION Q6H PRN 01/22/20 12/11/20 History atorvastatin 20 mg PO HS 01/22/20 12/11/20 History finasteride 5 mg PO QPM 01/22/20 12/11/20 History lisinopril 20 mg PO QAM 01/22/20 12/11/20 History pantoprazole 40 mg PO HS 01/22/20 12/11/20 History tamsulosin 0.4 mg PO HS 01/22/20 12/11/20 History ibuprofen 200 mg PO Q6H PRN 11/21/20 12/11/20 History Past Med/Surg History Medical History BPH (benign prostatic hyperplasia) GERD (gastroesophageal reflux disease) History of pancreatitis HTN (hypertension) Hypercholesteremia Kidney stone HX Osteoarthritis SOBOE (shortness of breath on exertion) A LITTLE WITH 1 FLIGHT Surgical History History of cardiac catheterization 2014 @ [facility]. Done due to + stress test. 20-30% proximal LMCA narrowing, no stents placed. Possible mild . False + stress test. History of colonoscopy History of esophagogastroduodenoscopy (EGD) History of foot surgery RIGHT History of lithotripsy History of repair of rotator cuff LEFT Nausea and vomiting after administration of anesthetic agent Family History Father Prostate cancer Mother Alive and well Social History Smoking Status: Never smoker Second Hand Exposure: No; Do You Dip or Chew Tobacco: No; Tobacco Cessation Education Requested by Patient: No Hx Alcohol Use: Yes Alcohol type: wine Hx Substance Use: No Preferred Language: Chinese Communication Ability: Effective Small Craft Operator Required: No Beliefs That Will Affect Care: None Current Living Situation: Spouse current occupation: SELF EMPLOYED Feels Safe at Home: Yes Safety Concerns: Feels Safe At This Time Assistive Devices: Glasses Review of Systems Review of Systems: ROS per HPI, all other systems reviewed and negative Physical Exam Constitutional: WD/WN, vitals as above Eyes: PERRL, conjunctivae normal, anicteric sclerae ENMT: external ear and nose normal, oropharynx normal Respiratory: normal respiratory effort, lungs clear to auscultation Cardiovascular: Rate/Rhythm: regular rate and regular rhythm Heart Sounds: + murmur (Systolic, grade 2/6) Vessels: normal peripheral pulses Extremities: no edema Chest (Breasts): Additional Comments: Point tenderness between ribs 3/4 Gastrointestinal (Abdomen): normal bowel sounds, soft, nontender, no hepatosplenomegaly Musculoskeletal: no cyanosis or clubbing, extremities motor strength 5/5 Skin: no rashes, warm and dry Neurologic: PERRL, EOMI, accommodation nl, no face palsy, no dysarthria Psychiatric: A+Ox3, euthymic affect Results & Data Results & Data ([facility]) Vital Signs (Past 12 Hours) Vital Signs Temp Pulse Pulse Resp BP BP Pulse Ox 12/11/20 21:19 55 L 16 115/70 95 12/11/20 20:46 60 16 109/69 95 12/11/20 20:14 63 16 105/68 95 12/11/20 19:28 64 19 103/62 94 12/11/20 18:00 66 21 113/53 L 93 12/11/20 17:30 69 23 125/72 94 12/11/20 17:29 37.1 C 64 17 140/74 99 Laboratory Results Short CBC 12/11/20 Range/Units 17:35 WBC 9.28 (4.8-10.8) K/uL Hgb 14.7 (14.0-18.0) g/dL Hct 42.4 (42-52) % Plt Count 184 (130-400) K/uL BMP 12/11/20 17:35 Sodium 141 Potassium 3.9 Chloride 107 Carbon Dioxide 29 BUN 18 Creatinine 1.08 Glucose 117 H Calcium 8.6 Cardiac Enzymes 12/11/20 Range/Units 17:35 Troponin I < 0.015 (0-0.045) ng/ml Liver Function 12/11/20 Range/Units 17:35 Total Bilirubin 0.5 (0.2-1) mg/dl AST 19 (15-37) U/L ALT 28 (12-78) U/L Alkaline Phosphatase 85 (45-117) U/L Albumin 3.6 (3.4-5.0) gm/dl Diagnostic Findings CXR IMPRESSION: Mild cardiac enlargement with no acute cardiopulmonary abnormality. CT CHEST/ABD/PELVISIMPRESSION: 1. There is no evidence of pulmonary embolus in the main, lobar, or segmental pulmonary arteries. 2. Cardiomegaly. 3. There is no airspace consolidation or pleural effusion. 4. Moderate to advanced colonic diverticulosis with evidence of mild acute sigmoid diverticulitis. 5. No intraperitoneal free air is identified and no organized fluid collection is seen to suggest abscess. 6. There is no CT evidence of acute pancreatitis as clinically queried. 7. There is a 10 mm round hypervascular lesion in the pancreatic tail. 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 GI follow-up is recommended. 8. Bilateral nephrolithiasis. 9. Additional findings as above. Supervising Physician Co-Signing Physician Notes IM ATTENDING : Patient seen and examined. History obtained from patient and records. Preceding documentation by NARINDER Nuno reviewed. In addition, chest pain not relieved by nitroglycerin given at the ER. FINAL ASSESSMENT AND PLAN as follows : Atypical chest pain Likely musculoskeletal given reproducibility Rule out ACS, hx nonocclusive CAD Chronic bradycardia Asymptomatic hyperlipasemia, pancreatic tail lesion on CT imaging Hypertension, stable Hyperlipidemia on statin Rx Hyperglycemia rule out DM OBS PCU Analgesia Aspirin for CAD prevention Follow troponin N.p.o. until patient seen by cardiology in a.m. in anticipation of procedure Outpatient GI consult for pancreatic tail lesion check HgA1c DVT prophylaxis per Lovenox subcu Full code Text document was generated using [employer] voice recognition software. It may contain grammatical or spelling errors. Kindly contact undersigned for clarification of any documentation item in question. (1) Chest pain Chest pain type: unspecified Qualified Code(s): R07.9 - Chest pain, unspecified
[2020-12-11] MEDS ORDERED: NITROGLYCERIN SL 0.4 MG/TAB TAB SL STA (21:36)
[2020-12-11] MEDS ORDERED: traMADol HCL 50 MG TABLET PO PRN (22:44)
[2020-12-11] MEDS ORDERED: MoRPHine SULFATE 4 MG/ML 1 ML CARP\\VIAL IV PRN (22:44)
[2020-12-11] MEDS ORDERED: ACETAMINOPHEN 325 MG TAB PO PRN (22:44)
[2020-12-11] MEDS ORDERED: PROMETHAZINE HCL 12.5 MG in SODIUM CHLORIDE 0.9% 50 ML IV PRN (22:44)
[2020-12-11 23:25] LABS: Lipase 780 U/L (73-393); Troponin I < 0.015 ng/ml (0-0.045)
[2020-12-12] MEDS: LACTATED RINGER'S 1,000 ML IV SCH ×2 (00:11→19:32)
[2020-12-12] MEDS ORDERED: MECLIZINE 12.5 MG TAB PO STA (05:44)
[2020-12-12 06:40] LABS: Basophils # (auto) 0.01 K/uL (0-0.2); Basophils % (auto) 0.2 %; Eosinophils # (auto) 0.21 K/uL (0-0.5); Eosinophils % (auto) 3.5 %; Hematocrit (blood only) 39.7 % (42-52); Hemoglobin 13.5 g/dL (14.0-18.0); Immature Granulocytes # (auto) 0.01 K/uL (0.00-0.02); Immature Granulocytes % (auto) 0.2 %; Lymphocytes # (auto) 1.49 K/uL (1.2-3.4); Lymphocytes % (auto) 24.6 %; Mean Corpuscular Hemoglobin 31.6 pg (25-34); Mean Platelet Volume 10.2 fL (7.4-10.4); Monocytes # (auto) 0.39 K/uL (0.11-0.59); Monocytes % (auto) 6.4 %; Neutrophils # (auto) 3.95 K/uL (1.4-6.5); Neutrophils % (auto) 65.1 %; Platelet Count 155 K/uL (130-400); RDW Coefficient of Variation 13.4 % (11.5-14.5); RDW Standard Deviation 45.6 fL (36.4-46.3); Red Blood Count 4.27 M/uL (4.7-6.1); White Blood Count 6.06 K/uL (4.8-10.8)
[2020-12-12 06:52] LABS: Estimated Average Glucose 126 mg/dl
[2020-12-12 07:06] LABS: Alanine Aminotransferase 22 U/L (12-78); Albumin Level 3.2 gm/dl (3.4-5.0); Aspartate Aminotransferase 14 U/L (15-37); BUN Creatinine Ratio 17.6 (10-20); Blood Urea Nitrogen 16 mg/dl (7-18); Calcium 8.1 mg/dl (8.5-10.1); Carbon Dioxide 32 mmol/L (21-32); Chloride 109 mmol/L (98-107); Creatinine Clr Calc Pharmacy 80.9 ml/min; Est GFR (Non-African American) 86.3; Glucose 84 mg/dl (70-99); Potassium 3.7 mmol/L (3.5-5.1); Sodium 142 mmol/L (136-145)
[2020-12-12 07:10] LABS: Albumin Globulin Ratio 1.1 (0.9-2); Alkaline Phosphatase 84 U/L (45-117); Bilirubin,Total 0.6 mg/dl (0.2-1); Chol HDL Ratio 4; Cholesterol 137 mg/dl (0-200); Globulin 2.9 gm/dl (2.5-4.0); HDL Cholesterol 35 mg/dl; LDL Cholesterol Calculated 80 mg/dl; Total Protein 6.1 gm/dl (6.4-8.2); Triglycerides 110 mg/dl (0-150); Troponin I < 0.015 ng/ml (0-0.045); VLDL Cholesterol 22 mg/dl
[2020-12-12 07:38] LABS: Lyme Ab IgG w/WB Rflx Negative (Negative); Lyme Ab IgM w/WB Rflx Negative (Negative)
[2020-12-12] MEDS: lisinopril 20 MG TAB PO SCH (08:05)
[2020-12-12] MEDS: ENOXAPARIN INJ 40 MG/0.4 ML SYR SQ SCH (08:06)
[2020-12-12] MEDS: ASPIRIN 81 MG ECTAB PO SCH (08:06)
--- NOTE | 2020-12-12 09:56 | Electrocardiogram Report ---
Test Reason : Blood Pressure : / mmHG Vent. Rate : 062 BPM Atrial Rate : 062 BPM P-R Int : 234 ms QRS Dur : 084 ms QT Int : 406 ms P-R-T Axes : 037 -08 056 degrees QTc Int : 412 ms Sinus rhythm with 1st degree A-V block Nonspecific ST abnormality Abnormal ECG When compared with ECG of 22-JAN-2020 07:25, No significant change was found Confirmed by Jorge A Burgess ([id number]) on 12/12/2020 9:55:48 AM Referred By: REFERRED SELF Confirmed By:Kush Burgess
--- NOTE | 2020-12-12 10:22 | Electrocardiogram Report ---
Test Reason : Blood Pressure : / mmHG Vent. Rate : 046 BPM Atrial Rate : 046 BPM P-R Int : 304 ms QRS Dur : 092 ms QT Int : 454 ms P-R-T Axes : 048 020 042 degrees QTc Int : 397 ms Sinus bradycardia with 1st degree A-V block Otherwise normal ECG When compared with ECG of 11-DEC-2020 17:29, (unconfirmed) No significant change was found Confirmed by Jorge A Burgess ([id number]) on 12/12/2020 10:21:44 AM Referred By: REFERRED SELF Confirmed By:Kush Burgess
--- NOTE | 2020-12-12 11:31 | Cardiology Consultation ---
Date of Consultation December 12, 2020 Assessment & Plan (1) Chest pain: Chest discomfort that was of several hours duration, with subsequent undetectable troponin I levels x3, EKG without ischemic changes. Proceed with exercise stress echocardiogram. In 2014, the patient exercised just over 7 minutes with reproduction of concerning symptoms of chest pain and shortness of breath, and equivocal EKG and wall motion findings. He went on to have cardiac catheterization with findings of 20 to 30% ostial tapering of the left main, otherwise no significant disease. He has been on appropriate risk factor treatment in the meantime. We will plan on repeating stress echocardiogram. There was concern for possible aortic valve gradient catheterization hemodynamics in 2014, no significant stenosis of the aortic valve noted on repeat echocardiogram in 2018. (2) Hypercholesteremia: Most recent outpatient LDL cholesterol was 93 mg/dL on atorvastatin 20 mg. Will consider increasing to 40 mg. (3) HTN (hypertension): Continue lisinopril, Flomax. History of Present Illness Attending Physician: Angeles Mcrae MD History of Present Illness Aidan Montague is a 70-year-old male seen in cardiology consultation per the request of Dr Pichardo for the evaluation of chest pain. 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 It persisted throughout the day, and even noted to some degree overnight last night, and he noted that he slept poorly last night. He does not believe that he did anything out of the ordinary to strained any muscles. He denies any associated heavy perspiration or upset stomach. Past Medical History: Hypertension Dyslipidemia Moderate concentric left ventricular hypertrophy, noted on outpatient echocardiogram 2017, aortic valve sclerosis without stenosis noted at that time Sinus bradycardia Evaluation for chest discomfort, August,, with cardiac catheterization as follows: Summary of Findings Coronary Angiography: 1. Left Main Coronary: Proximal LMCA has 20-30% smooth narrowing. 2. Left Anterior Descending: No angiographic evidence of significant CAD within LAD, small D1, large D2, and small D3. 3. Circumflex: No angiographic evidence of significant CAD within large circumflex or OM1. 4. Right Coronary Artery: Large, dominant vessel. No angiographic evidence of significant CAD within RCA, PDA, or posterior lateral branch. Left Heart Cath: 1. Left ventriculogram was not performed as recent echo was performed. 2. There was 10-12 mmHg gradient across the aortic valve (peak to peak). 3. Normal LVEDP (5 mmHg). Allergies Allergy/AdvReac Type Severity Reaction Status Date / Time Penicillins Allergy Intermediate Hives Verified 12/11/20 18:13 Home Medications Medication Instructions Recorded Confirmed Type albuterol sulfate 2 - 4 inh INHALATION Q6H PRN 01/22/20 12/11/20 History atorvastatin 20 mg PO HS 01/22/20 12/11/20 History finasteride 5 mg PO QPM 01/22/20 12/11/20 History lisinopril 20 mg PO QAM 01/22/20 12/11/20 History pantoprazole 40 mg PO HS 01/22/20 12/11/20 History tamsulosin 0.4 mg PO HS 01/22/20 12/11/20 History ibuprofen 200 mg PO Q6H PRN 11/21/20 12/11/20 History Patient History Medical History BPH (benign prostatic hyperplasia) GERD (gastroesophageal reflux disease) History of pancreatitis HTN (hypertension) Hypercholesteremia Kidney stone HX Osteoarthritis SOBOE (shortness of breath on exertion) A LITTLE WITH 1 FLIGHT Surgical History History of cardiac catheterization 2014 @ [facility]. Done due to + stress test. 20-30% proximal LMCA narrowing, no stents placed. Possible mild . False + stress test. History of colonoscopy History of esophagogastroduodenoscopy (EGD) History of foot surgery RIGHT History of lithotripsy History of repair of rotator cuff LEFT Nausea and vomiting after administration of anesthetic agent Family History Father Prostate cancer Mother Alive and well Social History Smoking Status: Never smoker Second Hand Exposure: No; Do You Dip or Chew Tobacco: No; Tobacco Cessation Education Requested by Patient: No Hx Alcohol Use: Yes Alcohol type: wine Hx Substance Use: No Preferred Language: [place] Communication Ability: Effective Cleaning Crew Member Required: No Beliefs That Will Affect Care: None Current Living Situation: Spouse current occupation: SELF EMPLOYED Feels Safe at Home: Yes Safety Concerns: Feels Safe At This Time Assistive Devices: None Review of Systems Review of Systems: All systems reviewed & are unremarkable except as noted in HPI & below Physical Exam Physical Exam: Temp Pulse Resp BP Pulse Ox 36.6 C 50 L 18 118/71 94 12/12/20 04:00 12/12/20 05:44 12/12/20 04:00 12/12/20 05:44 12/12/20 04:00 Constitutional: WD/WN, vitals as above Respiratory: normal respiratory effort, lungs clear to auscultation Cardiovascular: RRR, no murmur, no edema Gastrointestinal (Abdomen): normal bowel sounds, soft, nontender, no hepatosplenomegaly Neurologic: PERRL, EOMI, accommodation nl, no face palsy, no dysarthria Results & Data ([facility]) Vital Signs (Past 12 Hours) Vital Signs Temp Pulse Resp BP Pulse Ox 12/12/20 05:44 50 L 118/71 12/12/20 04:00 36.6 C 53 L 18 130/68 94 Laboratory Results Cardiac Enzymes 12/11/20 12/11/20 12/12/20 Range/Units 17:35 22:45 05:54 AST 19 14 L (15-37) U/L Troponin I < 0.015 < 0.015 < 0.015 (0-0.045) ng/ml Coagulation 12/11/20 Range/Units 17:35 PT 10.7 (9.0-12.0) Seconds APTT 24.3 (21.0-31.0) Seconds Lipids 12/12/20 Range/Units 05:54 Triglycerides 110 (0-150) mg/dl Cholesterol 137 (0-200) mg/dl HDL Cholesterol 35 mg/dl Cholesterol/HDL Ratio 4 CBC 12/11/20 12/12/20 Range/Units 17:35 05:54 WBC 9.28 6.06 (4.8-10.8) K/uL RBC 4.62 L 4.27 L (4.7-6.1) M/uL Hgb 14.7 13.5 L (14.0-18.0) g/dL Hct 42.4 39.7 L (42-52) % Plt Count 184 155 (130-400) K/uL Neut # (Auto) 7.13 H 3.95 (1.4-6.5) K/uL Lymph # (Auto) 1.51 1.49 (1.2-3.4) K/uL Rush # (Auto) 0.46 0.39 (0.11-0.59) K/uL Eos # (Auto) 0.15 0.21 (0-0.5) K/uL Baso # (Auto) 0.01 0.01 (0-0.2) K/uL Comprehensive Metabolic Panel 12/11/20 12/12/20 Range/Units 17:35 05:54 Sodium 141 142 (136-145) mmol/L Potassium 3.9 3.7 (3.5-5.1) mmol/L Chloride 107 109 H (98-107) mmol/L Carbon Dioxide 29 32 (21-32) mmol/L BUN 18 16 (7-18) mg/dl Creatinine 1.08 0.91 (0.6-1.4) mg/dl Glucose 117 H 84 (70-99) mg/dl Calcium 8.6 8.1 L (8.5-10.1) mg/dl AST 19 14 L (15-37) U/L ALT 28 22 (12-78) U/L Alkaline Phosphatase 85 84 (45-117) U/L Total Protein 6.9 6.1 L (6.4-8.2) gm/dl Albumin 3.6 3.2 L (3.4-5.0) gm/dl Intake and Output 12/11/20 12/12/20 12/12/20 22:59 06:59 14:59 Intake Total 766.667 / 817.167 50.5 / 817.167 Output Total 600 / 600 Balance 766.667 / 217.167 -549.5 / 217.167 Intake: IV 766.667 / 817.167 50.5 / 817.167 Lr 1,000 ml @ 500 mls/hr IV . 766.667 / 766.667 Q2H ONE Rx#:[id number] Phenergan 12.5 mg In Nss 50 ml 50.5 / 50.5 @ 202 mls/hr IV Q6H PRN Rx#: [id number] Output: Urine 600 / 600 Other: Other Intake Source sips Weight 88.4 kg 88.4 kg Weight Measurement Method Standing Scale Standing Scale Diagnostic Findings EKG performed 12/11/2020 at 1729 revealed sinus rhythm at 62 bpm with first- degree AV block, mild nonspecific repolarization changes. Repeat tracing this morning, performed at 847, reviewed independently, sinus bra dycardia 46 bpm, first-degree AV block, otherwise normal EKG. (1) Chest pain Chest pain type: unspecified Qualified Code(s): R07.9 - Chest pain, unspecified
--- NOTE | 2020-12-12 13:54 | Communication Note ---
Date of Service: December 12, 2020 Non ischemic stress echocardiogram. Resting echocardiogram with mild right ventricular chamber dilatation and borderline to mild diffuse RV hypokinesis. CTA was negative for pulmonary embolism. Pt states he snores, denies having been evaluated for sleep apnea in the past. Stable for discharge , would recommend increasing atorvastatin dose from 20 mg to 40 mg. Continue sleep apnea screen as outpatient.
--- NOTE | 2020-12-12 14:48 | Hospitalist Progress Note ---
Date of Service December 12, 2020 Assessment & Plan (1) Chest pain: Admitted with the precordial chest pain associated with some shortness of breath Serial cardiac enzymes have been negative for any ACS CTA was negative for any pulmonary embolism Status post nonischemic stress echocardiogram Appreciate cardiology input and recommendation Overweight Will need an outpatient sleep study to rule out sleep apnea (2) HTN (hypertension): Blood pressure is controlled (3) BPH (benign prostatic hyperplasia): (4) GERD (gastroesophageal reflux disease): No acute issue (5) Hypercholesteremia: Statin dose has been increased (6) Pancreatic abnormality: CT scan of the abdomen and pelvis reported as 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 The patient has lipase more than 700 which has been decreasing Doubt pancreatic lesion is causing any acute pain at this time We will start diet and see if the pain is recurred Admission and Anticipated Discharge Date Admission Date: December 11, 2020 Subjective 12/12/2020 The patient was seen and examined in telemetry unit He was admitted with precordial chest pain which lasted for some time associated with mild shortness of breath He denies any more pain since this morning Denies any other symptoms Review of Systems Review of Systems: All systems reviewed and are unremarkable except as noted below Cardiovascular: + chest pain (Left lateral chest wall without any tenderness) Gastrointestinal: no abdominal pain, no bloating, no nausea and no vomiting Physical Exam Physical Exam: Lying in bed comfortably Constitutional: well developed and well nourished; not ill appearing Eyes: PERRL, conjunctivae normal, anicteric sclerae ENMT: external ear and nose normal, oropharynx normal Respiratory: no respiratory distress Auscultation: lungs clear to auscultation bilaterally Cardiovascular: Rate/Rhythm: regular rate and regular rhythm Heart Sounds: no murmur Extremities: no edema Gastrointestinal (Abdomen): Inspection/Auscultation: normal bowel sounds Percussion/Palpation: abdomen soft; abdomen nontender Musculoskeletal: No acute arthritis in any joint Psychiatric: A+Ox3, euthymic affect Lymphatic: no cervical or axillary lymphadenopathy Results & Data Results & Data ([facility]) Vital Signs (Past 12 Hours) Vital Signs Temp Pulse Resp BP Pulse Ox 12/12/20 11:00 36.9 C 72 18 133/71 96 12/12/20 05:44 50 L 118/71 12/12/20 04:00 36.6 C 53 L 18 130/68 94 Laboratory Results Short CBC 12/11/20 12/12/20 Range/Units 17:35 05:54 WBC 9.28 6.06 (4.8-10.8) K/uL Hgb 14.7 13.5 L (14.0-18.0) g/dL Hct 42.4 39.7 L (42-52) % Plt Count 184 155 (130-400) K/uL BMP 12/11/20 12/12/20 17:35 05:54 Sodium 141 142 Potassium 3.9 3.7 Chloride 107 109 H Carbon Dioxide 29 32 BUN 18 16 Creatinine 1.08 0.91 Glucose 117 H 84 Calcium 8.6 8.1 L Cardiac Enzymes 12/11/20 12/11/20 12/12/20 Range/Units 17:35 22:45 05:54 Troponin I < 0.015 < 0.015 < 0.015 (0-0.045) ng/ml Liver Function 12/11/20 12/12/20 Range/Units 17:35 05:54 Total Bilirubin 0.5 0.6 (0.2-1) mg/dl AST 19 14 L (15-37) U/L ALT 28 22 (12-78) U/L Alkaline Phosphatase 85 84 (45-117) U/L Albumin 3.6 3.2 L (3.4-5.0) gm/dl Medications Administered Current Inpatient Medications Acetaminophen (Acetaminophen 325 Mg Tab) 650 mg PO Q4H PRN PRN Reason: Pain or Fever Stop: 01/10/21 22:43 Last Admin: 12/12/20 04:12 Dose: 650 mg Documented by: Aspirin (Aspirin 81 Mg Ectab) 81 mg PO QAM KATIANA Stop: 01/11/21 08:59 Last Admin: 12/12/20 08:06 Dose: 81 mg Documented by: Atorvastatin Calcium (Atorvastatin 20 Mg Tab) 20 mg PO HS KATIANA Stop: 01/11/21 20:59 Enoxaparin Sodium (Enoxaparin Inj 40 Mg/0.4 Ml Syr) 40 mg SQ QAM KATIANA Stop: 01/11/21 08:59 Last Admin: 12/12/20 08:06 Dose: 40 mg Documented by: Finasteride (Finasteride 5 Mg Tab) 5 mg PO QPM KATIANA Stop: 01/11/21 20:59 Promethazine HCl 12.5 mg/ (Sodium Chloride) 50.5 mls @ 202 mls/hr IV Q6H PRN PRN Reason: Nausea And Vomiting Stop: 01/10/21 22:43 Last Infusion: 12/12/20 05:11 Dose: Infused Documented by: Lactated Ringer's (Lr) 1,000 mls @ 80 mls/hr IV .[id number] [facility] Stop: 01/11/21 00:00 Last Admin: 12/12/20 00:11 Dose: 80 mls/hr Documented by: Lisinopril (Lisinopril 20 Mg Tab) 20 mg PO QAM [facility] Stop: 01/11/21 08:59 Last Admin: 12/12/20 08:05 Dose: 20 mg Documented by: Morphine Sulfate (Morphine Sulfate 4 Mg/Ml 1 Ml Carp\Vial) 4 mg IV Q4H PRN PRN Reason: Pain Stop: 12/25/20 22:43 Pantoprazole Sodium (Pantoprazole 40 Mg Tab) 40 mg PO [facility] Stop: 01/11/21 20:59 Tamsulosin HCl (Tamsulosin Hcl 0.4 Mg Cap) 0.4 mg PO [facility] Stop: 01/11/21 20:59 Tramadol HCl (Tramadol Hcl 50 Mg Tablet) 25 - 50 mg PO Q4H PRN PRN Reason: Pain Stop: 01/10/21 22:43 Last Admin: 12/11/20 22:54 Dose: 50 mg Documented by: (1) Chest pain Chest pain type: unspecified Qualified Code(s): R07.9 - Chest pain, unspecified
[2020-12-12] MEDS ORDERED: ATORVASTATIN 20 MG TAB PO SCH (21:00)
[2020-12-12] MEDS ORDERED: FINASTERIDE 5 MG TAB PO SCH (21:00)
[2020-12-12] MEDS ORDERED: PANTOprazole 40 MG TAB PO SCH (21:00)
[2020-12-12] MEDS ORDERED: TAMSULOSIN HCL 0.4 MG CAP PO SCH (21:00)
[2020-12-13 07:11] LABS: Basophils # (auto) 0.01 K/uL (0-0.2); Basophils % (auto) 0.2 %; Eosinophils # (auto) 0.15 K/uL (0-0.5); Eosinophils % (auto) 2.3 %; Hematocrit (blood only) 44.5 % (42-52); Hemoglobin 15.1 g/dL (14.0-18.0); Immature Granulocytes # (auto) 0.01 K/uL (0.00-0.02); Immature Granulocytes % (auto) 0.2 %; Lymphocytes # (auto) 1.29 K/uL (1.2-3.4); Lymphocytes % (auto) 20.2 %; Mean Corpuscular Hemoglobin 31.6 pg (25-34); Mean Corpuscular Hgb Conc 33.9 g/dL (32-36); Mean Corpuscular Volume 93.1 fL (80-100); Mean Platelet Volume 10.2 fL (7.4-10.4); Monocytes # (auto) 0.42 K/uL (0.11-0.59); Monocytes % (auto) 6.6 %; Neutrophils # (auto) 4.51 K/uL (1.4-6.5); Neutrophils % (auto) 70.5 %; Platelet Count 157 K/uL (130-400); RDW Coefficient of Variation 13.1 % (11.5-14.5); RDW Standard Deviation 44.5 fL (36.4-46.3); Red Blood Count 4.78 M/uL (4.7-6.1); White Blood Count 6.39 K/uL (4.8-10.8)
[2020-12-13 07:44] LABS: Calcium 9.3 mg/dl (8.5-10.1); Creatinine Clr Calc Pharmacy 66.1 ml/min; Est GFR (African American) 80.4; Est GFR (Non-African American) 69.4; Potassium 4.2 mmol/L (3.5-5.1)
[2020-12-13] MEDS: ASPIRIN 81 MG ECTAB PO SCH (08:06)
[2020-12-13] MEDS: lisinopril 20 MG TAB PO SCH (08:06)
[2020-12-13] MEDS: ENOXAPARIN INJ 40 MG/0.4 ML SYR SQ SCH (08:06)
[2020-12-13] MEDS ORDERED: metroNIDAZOLE 500 MG TAB PO SCH (10:30)
[2020-12-13] MEDS ORDERED: CIPROFLOXACIN 500 MG TAB PO SCH (10:30)
--- NOTE | 2020-12-13 11:41 | Hospitalist Progress Note ---
Date of Service December 13, 2020 Assessment & Plan (1) Chest pain: Chest Pain: R/O ACS -CTA:no evidence of pulmonary embolus in the main, lobar, or segmental pulmonary arteries. Cardiomegaly. There is no airspace consolidation or pleural effusion. -Troponin Negative -Stress Test: Normal exercise stress echo. No echocardiographic or EKG evidence of myocardial ischemia having achieved heart rate adequate for diagnostic purposes. Continue Aspirin, statins Appreciate Cardiology Input Possible Acute sigmoid diverticulitis -CT ABD: Moderate to advanced colonic diverticulosis with evidence of mild acute sigmoid diverticulitis. No intraperitoneal free air is identified and no org anized fluid collection is seen to suggest abscess. There is no CT evidence of acute pancreatitis as clinically queried. There is a 10 mm round hypervascular lesion in the pancreatic tail. 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 GI follow-up is recommended. Bilateral nephrolithiasis. 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 Lipase mildly elevated Patient denies alcohol use Currently denies abdominal pain Advised to follow-up with gastroenterology as outpatient for possible biopsy Tolerating regular diet DVT prophylaxis Lovenox SQ CODE STATUS Full code Disposition Plan to discharge home today Admission and Anticipated Discharge Date Admission Date: December 11, 2020 Subjective Patient is seen and examined at bedside Chest pain resolved Denies shortness of breath, dizziness, nausea, abdominal pain Discussed with cardiology today Plan to discharge home today Review of Systems Review of Systems: All systems reviewed & are unremarkable except as noted in HPI & below Physical Exam Physical Exam: Physical Exam: Vitals signs as noted above General Appearance:Moderately built and nourished, no apparent distress Head: normocephalic, Atraumatic Eyes: normal inspection, EOMI Neck: supple, Trachea midline Respiratory/Chest: Normal breath sounds, CTA, No accessory muscle use Cardiovascular: S1, S2, No murmur, +Bradycardia Abdomen/GI:Soft, Non tender, Bowel sounds present Extremities/Musculoskelatal:normal inspection, no edema Neurologic/Psych:AAOX3, grossly no focal neurological deficits Skin: normal color, warm Results & Data Results & Data ([facility]) Vital Signs (Past 12 Hours) Vital Signs Temp Pulse Pulse Resp BP Pulse Ox 12/13/20 08:00 72 12/13/20 07:54 36.5 C 59 L 16 118/72 98 12/13/20 04:31 36.3 C L 50 L 16 102/65 95 Laboratory Results Short CBC 12/13/20 Range/Units 06:03 WBC 6.39 (4.8-10.8) K/uL Hgb 15.1 (14.0-18.0) g/dL Hct 44.5 (42-52) % Plt Count 157 (130-400) K/uL BMP 12/13/20 06:03 Sodium 139 Potassium 4.2 Chloride 105 Carbon Dioxide 29 BUN 16 Creatinine 1.09 Glucose 83 Calcium 9.3 (1) Chest pain Chest pain type: unspecified Qualified Code(s): R07.9 - Chest pain, unspecified
--- NOTE | 2020-12-13 19:09 | Discharge Summary ---
Date of Service December 13, 2020 Admission HPI Per Admitting Provider 70-year-old male with PMH HLD, HTN, BPH, GERD, idiopathic pancreatitis, cardiac cath 2015 showing mild disease, and other problems to below who presents the ED for evaluation of chest pain. Patient reports that around 11:00 this morning, he developed a pain in his left lateral chest. He reports pain has been persistent throughout the day. Had a few episodes when the pain got acutely worse. No specific causative or alleviating factors. Patient notes some mild worsening exertional shortness of breath for the past few months. Denies lightheadedness, dizziness, diaphoresis, syncopal events. No abdominal pain, nausea, vomiting, diarrhea. Denies any other recent illnesses, fevers, chills. No urinary symptoms. In the ED, initial troponin is negative and EKG does not show any acute ST changes. D-dimer elevated, CTA chest negative for PE. Lipase 974. 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 Patient was given Tylenol and IVF. Admission Exam Per Admitting Provider Physical Exam Constitutional: WD/WN, vitals as above Eyes: PERRL, conjunctivae normal, anicteric sclerae ENMT: external ear and nose normal, oropharynx normal Respiratory: normal respiratory effort, lungs clear to auscultation Cardiovascular: Rate/Rhythm: regular rate and regular rhythm Heart Sounds: + murmur (Systolic, grade 2/6) Vessels: normal peripheral pulses Extremities: no edema Chest (Breasts): Additional Comments: Point tenderness between ribs 3/4 Gastrointestinal (Abdomen): normal bowel sounds, soft, nontender, no hepatosplenomegaly Musculoskeletal: no cyanosis or clubbing, extremities motor strength 5/5 Skin: no rashes, warm and dry Neurologic: PERRL, EOMI, accommodation nl, no face palsy, no dysarthria Psychiatric: A+Ox3, euthymic affect Principal Diagnosis Chest pain Pancreatic tail mass Possible acute mild sigmoid diverticulitis Hyperlipidemia Discharge Data Allergies Allergy/AdvReac Type Severity Reaction Status Date / Time Penicillins Allergy Intermediate Hives Verified 12/11/20 18:13 Consultations 12/11/20 20:37 ED Decision to Admit Stat 12/11/20 22:44 Consult Cardiology Routine Procedures Performed CTA:no evidence of pulmonary embolus in the main, lobar, or segmental pulmonary arteries. Cardiomegaly. There is no airspace consolidation or pleural effusion. -Stress Test: Normal exercise stress echo. No echocardiographic or EKG evidence of myocardial ischemia having achieved heart rate adequate for diagnostic purposes. Ordered Studies 12/11/20 18:21 CT abd pelvis IV con only Stat CT angio chest PE protocol Stat Hospital Course (1) Chest pain: Chest Pain: R/O ACS -CTA:no evidence of pulmonary embolus in the main, lobar, or segmental pulmonary arteries. Cardiomegaly. There is no airspace consolidation or pleural effusion. -Troponin Negative -Stress Test: Normal exercise stress echo. No echocardiographic or EKG evidence of myocardial ischemia having achieved heart rate adequate for diagnostic purposes. Continue Aspirin, statins Appreciate Cardiology Input Possible Acute sigmoid diverticulitis -CT ABD: Moderate to advanced colonic diverticulosis with evidence of mild acute sigmoid diverticulitis. No intraperitoneal free air is identified and no organized fluid collection is seen to suggest abscess. There is no CT evidence of acute pancreatitis as clinically queried. There is a 10 mm round hypervascular lesion in the pancreatic tail. 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 GI follow-up is recommended. Bilateral nephrolithiasis. 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 Lipase mildly elevated Patient denies alcohol use Currently denies abdominal pain Advised to follow-up with gastroenterology as outpatient for possible biopsy Tolerating regular diet DVT prophylaxis Lovenox SQ CODE STATUS Full code Disposition Plan to discharge home today Total Time Total Time Spent Total Time Spent (In Minutes): 40 minutes Discharge Plan Discharge Items Patient Disposition: Home - Self-Care Reason For Visit: CP Discharge Diagnosis: Chest pain Pancreatic tail mass Possible acute mild sigmoid diverticulitis Hyperlipidemia Activity: Per Instructions section Exercise/Sports: Gradually increase as tolerated Non-emergency contact: Primary Care Provider and Jewelry Bench Worker Call non-emergency contact if: you have any medication questions, your symptoms worsen, your pain is not controlled, your pain is worsening, your pain is unusual for you, your pain is concerning for you and you have a fever Follow-up/Referrals: Collins Will, DO [Primary Care Provider] - (Date & Time 12/17/2020 11:00 Eliseo Will [facility] ) Diet: Heart Healthy Addtl Attending Provider Instructions: Follow-up with your primary care physician Dr. Hurtado on 12/17/2020 11:00 AM as scheduled Follow-up with your lamination machine operator as advised for further evaluation and management of pancreatic tail mass noted on CT abdomen. Follow-up with your inspector outside production Dr. Martin if you have recurrence of chest pain as advised. Medication changes: Complete the antibiotic course ciprofloxacin, metronidazole as prescribed for possible acute mild diverticulitis. Start taking aspirin 81 mg daily. Your Lipitor is increased to 40 mg at bedtime. Get outpatient sleep study as recommended by your inspector outside production to rule out obstructive sleep apnea. Seek immediate medical attention if your symptoms reoccur or worsen Pending Studies at Discharge: No Stand-Alone Forms: My [facility] [employer], Smoking Cessation Medications and DC Order Prescriptions: New atorvastatin 40 mg Tablet 40 mg PO HS 30 Days Qty: 30 RF: 1 metronidazole 500 mg Tablet 500 mg PO Q8 5 Days Qty: 15 RF: 0 ciprofloxacin HCl 500 mg Tablet 500 mg PO BID 5 Days Qty: 10 RF: 0 aspirin 81 mg Tablet,Delayed Release (Dr/Ec) 81 mg PO QAM 30 Days Qty: 30 RF: 1 Continued tamsulosin 0.4 mg Capsule 0.4 mg PO HS RF: 0 pantoprazole 40 mg Tablet,Delayed Release (Dr/Ec) 40 mg PO HS RF: 0 albuterol sulfate 90 mcg/actuation Aerosol Powdr Breath Activated 2 - 4 inh INHALATION Q6H PRN (Reason: Shortness Of Breath) RF: 0 lisinopril 20 mg Tablet 20 mg PO QAM RF: 0 finasteride 5 mg Tablet 5 mg PO QPM RF: 0 ibuprofen 200 mg Tablet 200 mg PO Q6H PRN (Reason: Pain) RF: 0 Discontinued atorvastatin 20 mg Tablet 20 mg PO HS RF: 0 Discharge Orders: Discharge Order (Routine); Ordered 12/13/20 Ordered By: Taras K. Vangala Krames/Other Patient Handouts: 5 Steps for Eating Healthier, A1C Admission Data Admit Date/Time: 12/11/20 21:39 Attending Provider: Taras Barton Admit Provider: Aidan Pichardo Primary Care Provider: Collins Will Other Providers: Aidan Pichardo ; Candelario Gilliland ; Darrian Martin ; Lan Walker ; Ronaldo Hamlin ; Ray Candelaria ; Amrik Sung ; Brittni Da Silva ; Tori Weeks ; Darrius Munguia Other Interventions: Discharge Summary Assessment (RN) Last Done: 12/13/20 12:14
[2020-12-13] MEDS ORDERED: ATORVASTATIN 40 MG TAB PO SCH (21:00)
[2020-12-14] MEDS ORDERED: ASPIRIN 81 MG ECTAB PO SCH (09:00)
== END 2020-12-13 13:10 | disposition home or self-care (01) ==
LOC: ED 17:25 → 2S 17:25 → SUATTDRO 21:39 → 2S 22:07

== ENCOUNTER 2022-11-14 12:35 | Inpatient (IN) ==
--- NOTE | 2022-11-14 12:45 | Emergency Department Note ---
Impression & Plan Pancreatitis, Chest pain, Epigastric pain ED Provider Note NAME: NATHALIE SMITH AGE: 72 SEX: M : 1950 ARRIVES VIA: Walk-In INFORMANT: [Patient][, ] ED PROVIDER(S): [Lucas Brandt MD] Chief Complaint: Chest pain, shortness of breath HPI: Patient did have positive COVID last month had some labs completed yesterday at his appointment D-dimer did come back elevated. Patient was referred here for PE study and reports still feeling short of breath at rest and on exertion does have occasional chest pains. Patient's vitals are stable upon presentation. Patient states that he was referred here after having his outpatient blood work completed for CT angiography of the chest. Patient states that he has been having chest pain over the last 3 days and does state this is exertional in nature but primarily not present at rest. Patient states it does not radiate. The patient has been having shortness of breath at rest but is worse with exertion ever since he had COVID. The patient is vaccinated for COVID-19 but did not require hospitalization the patient did not receive any Paxlovid or any additional therapies. Patient denies any current chest pains. Patient denies any leg pain or calf pain. No history of DVT or PE. Patient denies any prior history of heart attack or stroke in parents or siblings. Patient denies any associated nausea or vomiting. Patient Nu[place] any calf pain or erythema. No recent hospitalizations. Patient denies any current cough or fever. No smoking history I did review the patient's weight which is not grossly to similar from January 2021. MDM: Patient presents due to concern for chest pain shortness of breath and was an outpatient referral due to concern for positive D-dimer. Patient did have blood work completed along with an EKG troponin and CT angiography of the chest. The patient was ordered small IV fluid bolus. Patient's weight is similar from prior believe CHF to be less likely. Patient has no signs of DVT on exam. No calf pain or erythema. Patient's blood work shows normal white count H&H and platelet count with normal kidney function. The patient does have prerenal azotemia noted. LFTs grossly unremarkable negative troponin. EKG with no signs of obvious ischemia. Lipase is elevated at 171. Patient CT angiography of the chest does not show evidence of PE or acute intrathoracic findings. I did discuss these findings with the patient the patient did state that he did have a bout of pancreatitis that occurred 2 years ago. The patient does admit that he does have some mild upper abdominal discomfort and this is close to where the patient does have his chest pain. I did speak the on-call hospitalist Latanya Flores PA-C and the patient was admitted by Dr. Edwards. ROS: See HPI for pertinent positives and negatives. A total of 10 systems were reviewed and otherwise negative. Past medical history: See below Surgical history: See below Social history: See below Physical Exam: GENERAL: NAD, [wearing a mask,] non-toxic. Wearing glasses. EYE EXAM: Normal conjunctiva. PERRL, no anisocoria and EOM's grossly intact w/o pain. NECK: Supple, no nuchal rigidity, no adenopathy, non-tender. No signs of meningismus. FROM of the neck with good chin to chest and neck extension. No stridor. LUNGS: Clear to auscultation. Normal chest wall mechanics. HEART: NSR, no MRG. ABDOMEN: Abdomen soft, non-tender, normo-active bowel sounds, no masses, no rebound or guarding. BACK: No CVA TTP. SKIN: No rashes and no bruising. UPPER EXTREMITIES: Upper extremities are grossly normal. LOWER EXTREMITIES: Grossly normal, no edema. Negative Homans' sign bilaterally. NEURO EXAM: A&O x3, cranial nerves II-XII grossly intact, normal speech, moves all 4 extremities. Differential diagnoses: Reactive airway disease, pneumonia, pneumothorax, COPD, CHF, infections, cardiac ischemia, pulmonary embolism, musculoskeletal, gastrointestinal, as well as other pathologies. Course: Patient was seen and evaluated the bedside. Full history physical exam was performed. EKG interpreted by me Sinus with first-degree AV block, rate of 67, prolonged MA, normal QRS, normal axis no ST elevations or T WI no significant change from comparison EKG December 12, 2020. Imaging Studies: See Below Cardiac monitoring: An order was placed for continuous cardiac monitoring. The monitor shows a rate of 77 with sinus rhythm. Past Med/Surg History Medical History BPH (benign prostatic hyperplasia) GERD (gastroesophageal reflux disease) History of pancreatitis HTN (hypertension) Hypercholesteremia Kidney stone HX Osteoarthritis SOBOE (shortness of breath on exertion) A LITTLE WITH 1 FLIGHT Surgical History History of cardiac catheterization 2014 @ [facility]. Done due to + stress test. 20-30% proximal LMCA narrowing, no stents placed. Possible mild . False + stress test. History of colonoscopy History of esophagogastroduodenoscopy (EGD) History of foot surgery RIGHT History of lithotripsy History of repair of rotator cuff LEFT Nausea and vomiting after administration of anesthetic agent Family History Father Prostate cancer Mother Alive and well Social History Smoking Status: Never smoker Second Hand Exposure: No; Hx Alcohol Use: Yes Alcohol type: wine Hx Substance Use: No Preferred Language: Faroese Communication Ability: Effective Director Financial Analysis Required: No Beliefs That Will Affect Care: None Current Living Situation: Spouse current occupation: SELF EMPLOYED Feels Safe at Home: Yes Assistive Devices: Glasses Allergies Allergies Allergy/AdvReac Type Severity Reaction Status Date / Time Penicillins Allergy Intermediate Hives Verified 11/14/22 14:54 Home Meds Home Medications Medication Instructions Recorded Confirmed albuterol sulfate 90 mcg/actuation 2 - 4 inh inhalation Q6H PRN 01/22/20 11/14/22 breath activated powder inhaler Shortness Of Breath finasteride 5 mg tablet 5 mg PO QPM 01/22/20 11/14/22 lisinopril 20 mg tablet 20 mg PO QAM 01/22/20 11/14/22 pantoprazole 40 mg tablet,delayed 40 mg PO HS 01/22/20 11/14/22 release tamsulosin 0.4 mg capsule (Flomax) 0.4 mg PO HS 01/22/20 11/14/22 ibuprofen 200 mg tablet 200 mg PO Q6H PRN Pain 11/21/20 11/14/22 Previous Rx's Medication Instructions Recorded aspirin 81 mg tablet,delayed 81 mg PO QAM 30 days #30 tabs 12/13/20 release atorvastatin 40 mg tablet 40 mg PO HS 30 days #30 tabs 12/13/20 Results & Data (ED) Vital Signs Vital Signs - 24 hr 11/14/22 12:39 11/14/22 13:13 11/14/22 14:00 Temperature 36.5 C Temperature Source Temporal Artery Scan Pulse Rate 74 64 Pulse Rate from SpO2 Sensor Respiratory Rate 18 18 Respiratory Effort / Characteristics Non-Labored Spontaneous Respiratory Depth Normal Respiratory Pattern Regular Blood Pressure 138/78 Blood Pressure Mean 98 Blood Pressure Position Sitting Pulse Oximetry 96 94 95 Oxygen Delivery Method Room Air Sepsis Recent Fever Within 48 Hours No Sepsis New/Unexplained Change in Mental Status N/A Sepsis Action Taken by Nursing No Action Required 11/14/22 15:00 11/14/22 17:44 11/14/22 17:44 Temperature Temperature Source Pulse Rate 73 Pulse Rate from SpO2 Sensor 59 L Respiratory Rate 14 Respiratory Effort / Characteristics Respiratory Depth Respiratory Pattern Blood Pressure 140/76 155/103 H Blood Pressure Mean 97 120 Blood Pressure Position Pulse Oximetry 97 96 Oxygen Delivery Method Sepsis Recent Fever Within 48 Hours Sepsis New/Unexplained Change in Mental Status Sepsis Action Taken by Jail Medications Current Medication List: was personally reviewed by me Laboratory Data Attestation: I reviewed the patient's lab results. Result diagrams: 11/14/22 12:52 11/14/22 12:52 Lab Results 11/14/22 11/14/22 11/14/22 Range/Units 12:52 12:52 16:12 WBC 5.81 (4.8-10.8) K/ul RBC 4.41 L (4.63-6.08) M/uL Hgb 14.0 (14.0-18.0) g/dl Hct 40.1 (40.1-51.0) % MCV 90.9 (80.0-100.0) fL MCH 31.7 (25.0-34.0) pg MCHC 34.9 (32.0-36.0) g/dL RDW Std Deviation 42.6 (36.4-46.3) fL RDW Coeff of Aleta 12.9 (11.5-14.5) % Plt Count 190 (130-400) K/uL MPV 10.2 (9.4-12.4) fL Immature Gran % (Auto) 0.3 % Neut % (Auto) 69.1 % Lymph % (Auto) 19.6 % Mariposa % (Auto) 7.4 % Eos % (Auto) 3.4 % Baso % (Auto) 0.2 % Neut # (Auto) 4.01 (1.4-6.5) K/uL Lymph # (Auto) 1.14 L (1.2-3.4) K/uL [place]osa # (Auto) 0.43 (0.24-0.82) K/uL Eos # (Auto) 0.20 (0-0.50) K/uL Baso # (Auto) 0.01 (0-0.2) K/uL Immature Gran # (Auto) 0.02 (0.00-0.02) K/uL Sodium 140 (136-145) mmol/L Potassium 3.9 (3.5-5.1) mmol/L Chloride 105 (98-107) mmol/L Carbon Dioxide 27 (21-32) mmol/L Anion Gap 8 (3-11) BUN 21 (6-23) mg/dl Creatinine 0.85 (0.6-1.4) mg/dl Est Cr Clr Drug Dosing 85.3 ml/min Est GFR ( Amer) 102.3 ml/min Est GFR (Non-Af Amer) 88.3 ml/min BUN/Creatinine Ratio 24.7 H (10-20) Glucose 129 H (70-99(Fasting)) mg/dl Calcium 9.0 (8.5-10.1) mg/dl Total Bilirubin 0.6 (0.2-1.0) mg/dl AST 17 (13-39) U/L ALT 15 (7-52) U/L Alkaline Phosphatase 81 (34-104) U/L Troponin I High Sens 5.3 (0-20) pg/ml Total Protein 6.6 (6.0-8.3) gm/dl Albumin 4.0 (3.4-5.0) gm/dl Globulin 2.6 (2.5-4.0) gm/dl Albumin/Globulin Ratio 1.5 (0.9-2) Lipase 171 H (11-82) U/L SARS-CoV-2, RNA, NAAT NEGATIVE (NEGATIVE) Administered Medications Discontinued Medications Sodium Chloride (Nss) 500 mls @ 999 mls/hr IV .Q31M STA Stop: 11/14/22 13:34 Last Infusion: 11/14/22 14:39 Dose: 0 mls/hr Documented By: OAGloria Admin: 11/14/22 13:56 Dose: 999 mls/hr Documented By: DANAE Ioversol (Optiray 320 500ml) 111 ml IV ONCE ONE Stop: 11/14/22 14:09 Last Admin: 11/14/22 14:08 Dose: 111 ml Documented By: KOKO Imaging Data Radiologist's Impression: Chest CTA 11/14/22 13:04 CT ANGIOGRAPHY OF THE CHEST, PULMONARY EMBOLUS PROTOCOL CLINICAL HISTORY: Chest Pain, eval for PE, +dimer outpatient COMPARISON STUDY: Chest CT December 11, 2020. TECHNIQUE: Following IV administration of 111 mL of Optiray, helical axial images of the chest were obtained utilizing the pulmonary embolus protocol. Maximal intensity projections and sagittal and coronal reformats were viewed on an independent 3D workstation. IV contrast was administered without complication. Automated exposure control was utilized for the study. A dose lowering technique was utilized adhering to the principles of ALARA. CT DOSE: 528.01 mGy.cm FINDINGS: No pulmonary emboli are identified. There is no thoracic aortic dissection. Size of the heart is within normal limits. There is no pericardial effusion. A small hiatal hernia is present. Evidence for a previous granulomatous process includes calcified thoracic lymph nodes and calcified granulomas within the spleen. There is no consolidation to suggest pneumonia. No pneumothorax or pleural effusion is present. No acute fractures within the visualized bony thorax are noted. Right shoulder arthroplasty is present. IMPRESSION: 1. No pulmonary emboli identified. 2. No acute intrathoracic findings. ACT 112: Negative or not required by law. Electronically signed by: Isaac Dennis M.D. 11/14/2022 2:28 PM Discharge Plan Visit Data Chief Complaint: Abnormal Labs/Diagnostic Testing Stated Complaint: DR REF OVER FOR CT, ADNORMAL LABS ED Provider: Lucas Brandt Discharge Problem: Pancreatitis, Chest pain, Epigastric pain Forms Stand Alone Forms: [facility] [place] [employer] Prescriptions Prescriptions: No Action tamsulosin [Flomax] 0.4 mg Capsule 0.4 mg PO HS pantoprazole 40 mg Tablet,Delayed Release (Dr/Ec) 40 mg PO HS albuterol sulfate 90 mcg/actuation Aerosol Powdr Breath Activated 2 - 4 inh INHALATION Q6H PRN (Reason: Shortness Of Breath) lisinopril 20 mg Tablet 20 mg PO QAM finasteride 5 mg Tablet 5 mg PO QPM ibuprofen 200 mg Tablet 200 mg PO Q6H PRN (Reason: Pain) atorvastatin 40 mg Tablet 40 mg PO HS 30 Days Qty: 30 1RF aspirin 81 mg Tablet,Delayed Release (Dr/Ec) 81 mg PO QAM 30 Days Qty: 30 1RF Referrals Referrals: Collins Will DO [Primary Care Provider] -
[2022-11-14] MEDS ORDERED: SODIUM CHLORIDE 0.9% 500 ML IV STA (13:04)
[2022-11-14 13:18] LABS: Basophils # (auto) 0.01 K/uL (0-0.2); Basophils % (auto) 0.2 %; Eosinophils % (auto) 3.4 %; Hematocrit (blood only) 40.1 % (40.1-51.0); Immature Granulocytes # (auto) 0.02 K/uL (0.00-0.02); Immature Granulocytes % (auto) 0.3 %; Lymphocytes # (auto) 1.14 K/uL (1.2-3.4); Lymphocytes % (auto) 19.6 %; Mean Corpuscular Hemoglobin 31.7 pg (25.0-34.0); Mean Corpuscular Hgb Conc 34.9 g/dL (32.0-36.0); Mean Corpuscular Volume 90.9 fL (80.0-100.0); Mean Platelet Volume 10.2 fL (9.4-12.4); Monocytes # (auto) 0.43 K/uL (0.24-0.82); Monocytes % (auto) 7.4 %; Neutrophils # (auto) 4.01 K/uL (1.4-6.5); Neutrophils % (auto) 69.1 %; Platelet Count 190 K/uL (130-400); RDW Coefficient of Variation 12.9 % (11.5-14.5); RDW Standard Deviation 42.6 fL (36.4-46.3); Red Blood Count 4.41 M/uL (4.63-6.08); White Blood Count 5.81 K/ul (4.8-10.8)
[2022-11-14 13:44] LABS: Troponin I High Sensitivity 5.3 pg/ml (0-20)
[2022-11-14 13:51] LABS: Albumin Globulin Ratio 1.5 (0.9-2); BUN Creatinine Ratio 24.7 (10-20); Bilirubin,Total 0.6 mg/dl (0.2-1.0); Creatinine Clr Calc Pharmacy 85.3 ml/min; Est GFR (African American) 102.3 ml/min; Est GFR (Non-African American) 88.3 ml/min; Globulin 2.6 gm/dl (2.5-4.0); Potassium 3.9 mmol/L (3.5-5.1); Total Protein 6.6 gm/dl (6.0-8.3)
[2022-11-14] MEDS ORDERED: OPTIRAY 320 500ml IV ONE (14:08)
--- NOTE | 2022-11-14 14:30 | CT Scan Report ---
CT ANGIOGRAPHY OF THE CHEST, PULMONARY EMBOLUS PROTOCOL CLINICAL HISTORY: Chest Pain, eval for PE, +dimer outpatient COMPARISON STUDY: Chest CT December 11, 2020. TECHNIQUE: Following IV administration of 111 mL of Optiray, helical axial images of the chest were o btained utilizing the pulmonary embolus protocol. Maximal intensity projections and sagittal and cor onal reformats were viewed on an independent 3D workstation. IV contrast was administered without co mplication. Automated exposure control was utilized for the study. A dose lowering technique was ut ilized adhering to the principles of ALARA. CT DOSE: 528.01 mGy.cm FINDINGS: No pulmonary emboli are identified. There is no thoracic aortic dissection. Size of the he art is within normal limits. There is no pericardial effusion. A small hiatal hernia is present. Evid ence for a previous granulomatous process includes calcified thoracic lymph nodes and calcified granu chavez within the spleen. There is no consolidation to suggest pneumonia. No pneumothorax or pleural e ffusion is present. No acute fractures within the visualized bony thorax are noted. Right shoulder ar throplasty is present. IMPRESSION: 1. No pulmonary emboli identified. 2. No acute intrathoracic findings. ACT 112: Negative or not required by law. Electronically signed by: Isaac Dennis M.D. 11/14/2022 2:28 PM
--- NOTE | 2022-11-14 14:58 | Electrocardiogram Report ---
Test Reason : Blood Pressure : / mmHG Vent. Rate : 067 BPM Atrial Rate : 067 BPM P-R Int : 218 ms QRS Dur : 084 ms QT Int : 414 ms P-R-T Axes : 041 009 032 degrees QTc Int : 437 ms Sinus rhythm with 1st degree A-V block Otherwise normal ECG When compared with ECG of 12-DEC-2020 08:47, No significant change was found Confirmed by Vladimir Dong ([id number]) on 11/14/2022 2:58:30 PM Referred By: REFERRED SELF Confirmed By:Vladimir Dong
--- NOTE | 2022-11-14 16:05 | History & Physical Report ---
Date of Service November 14, 2022 Assessment & Plan (1) Epigastric pain: (2) Chest pain: (3) Pancreatitis: (4) Pancreatic abnormality: (5) BPH (benign prostatic hyperplasia): (6) HTN (hypertension): (7) Hypercholesteremia: (8) GERD (gastroesophageal reflux disease): Plan This is a 74-year-old male with PMH of hypertension, hyperlipidemia, BPH, GERD and other medical problems listed below who presents with chest pain and shortness of breath and found to have elevated lipase concerning for pancreatitis. Epigastric pain Atypical chest pain Possible pancreatitis Lower chest/epigastric sharp pain since last week. D-dimer elevated but CTA without evidence of PE or acute intrathoracic findings Initial lipase 171. Does have history of pancreatitis in the past and was told he had a cyst on pancreatic tail but no intervention felt to be needed after follow-up imaging, per patient Will obtain limited ultrasound right upper quadrant to better evaluate for gallstone pancreatitis. May benefit from further abdominal imaging if pain persist tomorrow and patient can tolerate more contrast dye Nondrinker, non-smoker. Fasting lipid panel in a.m EKG without acute ST or T wave changes, initial high-sensitivity troponin negative Trend on telemetry overnight, repeat troponin once more for completeness N.p.o. but allowed sips, ice chips and p.o. medications Pain control, continue IV lactated Ringer's HTN Optimize pain control, continue lisinopril in a.m. HLD Continue statin BPH Continue finasteride, tamsulosin GERD Continue pantoprazole DVT Ppx: SQ lovenox Code status: FULL PCP: Nicolette Dispo: Observation med tele Patient seen in collaboration with Dr. Edwards. Please see addendum. History of Present Illness Chief Complaint: CP Primary Care Provider: Collins Will DO This is a 74-year-old male with PMH of hypertension, hyperlipidemia, BPH, GERD and other medical problems listed below who presents with chest pain and shortness of breath. Saw PCP on Wednesday and had some lab work performed for CP and SOB. Pain is in lower left chest and radiates to the right. Worse with exertion and better with rest. Last for about an hour at a time and he describes it as sharp. No nausea or vomiting. Does not radiate to arms or jaw. Does not seem to get worse after eating. He was called about today and instructed to come to ED for further evaluation for PE due to elevated d-dimer. History of pancreatitis in the past that was idiopathic. Has not had any alcohol in months and does not smoke. Still has gallbladder. Is on atorvastatin for high cholesterol. Denies any fever or chills. No lightheadedness, headache, palpitations, shortness of breath, wheezing, nausea, vomiting, lower abdominal pain, dysuria, diarrhea or constipation. Allergies Allergy/AdvReac Type Severity Reaction Status Date / Time Penicillins Allergy Intermediate Hives Verified 11/14/22 14:54 Home Medications Medication Instructions Recorded Confirmed Type albuterol sulfate 90 mcg/actuation 2 - 4 inh inhalation Q6H PRN 01/22/20 11/14/22 History breath activated powder inhaler Shortness Of Breath finasteride 5 mg tablet 5 mg PO QPM 01/22/20 11/14/22 History lisinopril 20 mg tablet 20 mg PO QAM 01/22/20 11/14/22 History pantoprazole 40 mg tablet,delayed 40 mg PO HS 01/22/20 11/14/22 History release tamsulosin 0.4 mg capsule (Flomax) 0.4 mg PO HS 01/22/20 11/14/22 History ibuprofen 200 mg tablet 200 mg PO Q6H PRN Pain 11/21/20 11/14/22 History aspirin 81 mg tablet,delayed 81 mg PO QAM 30 days #30 tabs 12/13/20 11/14/22 Rx release atorvastatin 40 mg tablet 40 mg PO HS 30 days #30 tabs 12/13/20 11/14/22 Rx Past Med/Surg History Medical History BPH (benign prostatic hyperplasia) GERD (gastroesophageal reflux disease) History of pancreatitis HTN (hypertension) Hypercholesteremia Kidney stone HX Osteoarthritis SOBOE (shortness of breath on exertion) A LITTLE WITH 1 FLIGHT Surgical History History of cardiac catheterization 2014 @ [facility]. Done due to + stress test. 20-30% proximal LMCA narrowing, no stents placed. Possible mild . False + stress test. 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 Physical Exam Physical Exam: Please see Dr. Edwards's addendum for physical exam. Results & Data Results & Data ([facility]) Vital Signs (Past 12 Hours) Vital Signs Temp Pulse Resp BP Pulse Ox O2 Del Method 11/14/22 15:00 73 14 140/76 97 11/14/22 14:00 64 18 95 11/14/22 13:13 94 11/14/22 12:39 36.5 C 74 18 138/78 96 Room Air Laboratory Results Short CBC 11/14/22 Range/Units 12:52 WBC 5.81 (4.8-10.8) K/ul Hgb 14.0 (14.0-18.0) g/dl Hct 40.1 (40.1-51.0) % Plt Count 190 (130-400) K/uL BMP 11/14/22 12:52 Sodium 140 Potassium 3.9 Chloride 105 Carbon Dioxide 27 BUN 21 Creatinine 0.85 Glucose 129 H Calcium 9.0 Liver Function 11/14/22 Range/Units 12:52 Total Bilirubin 0.6 (0.2-1.0) mg/dl AST 17 (13-39) U/L ALT 15 (7-52) U/L Alkaline Phosphatase 81 (34-104) U/L Albumin 4.0 (3.4-5.0) gm/dl Diagnostic Findings Chest CTA 11/14/22 13:04 CT ANGIOGRAPHY OF THE CHEST, PULMONARY EMBOLUS PROTOCOL CLINICAL HISTORY: Chest Pain, eval for PE, +dimer outpatient COMPARISON STUDY: Chest CT December 11, 2020. TECHNIQUE: Following IV administration of 111 mL of Optiray, helical axial images of the chest were obtained utilizing the pulmonary embolus protocol. Maximal intensity projections and sagittal and coronal reformats were viewed on an independent 3D workstation. IV contrast was administered without complication. Automated exposure control was utilized for the study. A dose lowering technique was utilized adhering to the principles of ALARA. CT DOSE: 528.01 mGy.cm FINDINGS: No pulmonary emboli are identified. There is no thoracic aortic dissection. Size of the heart is within normal limits. There is no pericardial effusion. A small hiatal hernia is present. Evidence for a previous granulomatous process includes calcified thoracic lymph nodes and calcified granulomas within the spleen. There is no consolidation to suggest pneumonia. No pneumothorax or pleural effusion is present. No acute fractures within the visualized bony thorax are noted. Right shoulder arthroplasty is present. IMPRESSION: 1. No pulmonary emboli identified. 2. No acute intrathoracic findings. ACT 112: Negative or not required by law. Electronically signed by: Isaac Dennis M.D. 11/14/2022 2:28 PM Code Status & VTE Plan VTE Prophylaxis Plan VTE Prophylaxis will be ordered: Yes Supervising Physician Co-Signing Physician Notes Agreed with Latanya HYLTON exam, assessment and plan. 74-year-old male with PMH of hypertension, hyperlipidemia, BPH, GERD and other medical problems listed below who presents with chest pain and shortness of breath. Saw PCP on Wednesday and had some lab work performed for CP and SOB. Pain is in lower left chest and radiates to the right. Worse with exertion and better with Pt said that he saw he PCP last Wednesday for chest pain and SOB. He had lab done outpatient that showed elevated ddimer. He said that he had a call from his PCP that advised him to go to the ER to r/o PE. Pt said that he continued to have LUQ abdominal discomfort. His lipase mildly elevated. CTA chest showed no pulmonary emboli identified. No acute intrathoracic findings. will do conservative management with IVF. Will keep NPO for bowel rest. Pain control. Will repeat lipase in am. Continue monitor closely. MD Grace
[2022-11-14] MEDS ORDERED: oxyCODONE HCL IR 5 MG TAB (IMMEDIATE RELEASE) PO PRN (16:58)
[2022-11-14] MEDS ORDERED: POLYETHYLENE (MIRALAX) 17 GM PACK PO PRN (19:02)
[2022-11-14] MEDS ORDERED: ONDANSETRON INJ 2 MG/ML 2 ML VIAL IV PRN (19:02)
--- NOTE | 2022-11-14 19:37 | Ultrasound Report ---
ABDOMINAL ULTRASOUND, RIGHT UPPER QUADRANT HISTORY: Chest pain. Evaluate for gallstone pancreatitis, has GB. COMPARISON: Right upper quadrant ultrasound and MRI of the abdomen January 22, 2020. CT of the abdomen and pelvis December 11, 2020. FINDINGS: No hepatic lesions are identified. There is no biliary ductal dilatation. The common bile d uct measures 4 mm in caliber. The pancreas is obscured by overlying bowel gas. No gallstones are iden tified. No gallbladder wall thickening. There is no right hydronephrosis. IMPRESSION: 1. No gallstones. No gallbladder wall thickening. 2. No biliary ductal dilatation. 3. Obscured pancreas. ACT 112: Negative or not required by law. Electronically signed by: Isaac Dennis M.D. 11/14/2022 7:36 PM
[2022-11-14] MEDS ORDERED: ALBUTEROL HFA 8 GM INHALER INH PRN (22:19)
[2022-11-14] MEDS: TAMSULOSIN HCL 0.4 MG CAP PO SCH (23:01)
[2022-11-14] MEDS: PANTOprazole 40 MG TAB PO SCH (23:02)
[2022-11-14] MEDS: ATORVASTATIN 40 MG TAB PO SCH (23:02)
[2022-11-14] MEDS: FINASTERIDE 5 MG TAB PO SCH (23:02)
[2022-11-14] MEDS: LACTATED RINGER'S 1,000 ML IV SCH (23:03)
[2022-11-14] MEDS: ENOXAPARIN INJ 40 MG/0.4 ML SYR SQ SCH (23:45)
[2022-11-15] MEDS ORDERED: Nursing to Pharmacy Communication SCH (00:45)
[2022-11-15] MEDS: LACTATED RINGER'S 1,000 ML IV SCH ×2 (07:16→15:24)
[2022-11-15 07:45] LABS: Hematocrit (blood only) 39.3 % (40.1-51.0); Hemoglobin 13.9 g/dl (14.0-18.0); Mean Corpuscular Hemoglobin 31.2 pg (25.0-34.0); Mean Corpuscular Hgb Conc 35.4 g/dL (32.0-36.0); Mean Corpuscular Volume 88.3 fL (80.0-100.0); Mean Platelet Volume 9.9 fL (9.4-12.4); Platelet Count 163 K/uL (130-400); RDW Coefficient of Variation 12.9 % (11.5-14.5); RDW Standard Deviation 41.9 fL (36.4-46.3); Red Blood Count 4.45 M/uL (4.63-6.08); White Blood Count 4.77 K/ul (4.8-10.8)
[2022-11-15] MEDS: lisinopril 20 MG TAB PO SCH (08:25)
[2022-11-15] MEDS: ASPIRIN 81 MG ECTAB PO SCH (08:25)
[2022-11-15 10:04] LABS: Albumin Globulin Ratio 1.5 (0.9-2); Albumin Level 3.7 gm/dl (3.4-5.0); BUN Creatinine Ratio 16.9 (10-20); Calcium 8.5 mg/dl (8.5-10.1); Chol HDL Ratio 4.2 (0-5); Creatinine Clr Calc Pharmacy 79.9 ml/min; Est GFR (African American) 100.4 ml/min; Est GFR (Non-African American) 86.6 ml/min; Globulin 2.4 gm/dl (2.5-4.0); Potassium 3.9 mmol/L (3.5-5.1); Total Protein 6.1 gm/dl (6.0-8.3)
--- NOTE | 2022-11-15 10:59 | Hospitalist Progress Note ---
Date of Service November 15, 2022 Assessment & Plan (1) Epigastric pain: (2) Chest pain: (3) Pancreatitis: (4) Pancreatic abnormality: (5) BPH (benign prostatic hyperplasia): (6) HTN (hypertension): (7) Hypercholesteremia: (8) GERD (gastroesophageal reflux disease): Plan This is a 74-year-old male with PMH of hypertension, hyperlipidemia, BPH, GERD and other medical problems listed below who presents with chest pain and shortness of breath and found to have elevated lipase concerning for pancreatitis. Epigastric pain Possible pancreatitis Lower chest/epigastric sharp pain since last week. D-dimer elevated but CTA without evidence of PE or acute intrathoracic findings Abdominal u/s showed . No gallstones. No gallbladder wall thickening. No biliary ductal dilatation. Initial lipase 171 on admission, trending down to 100 today Will start on full liquid diet and advanced as tolerated Continue pain control Continue IVF Atypical chest pain Seems to be more GI etiology ( pain location at the border of LUQ ) Troponin negative x [address] or T wave changes Will get an echo to complete cardiac workup Continue aspirin and statin Continue monitor closely HTN Continue lisinopril BP stable HLD Continue statin BPH Continue finasteride, tamsulosin GERD Continue pantoprazole DVT Ppx: SQ lovenox Code status: FULL PCP: Nicolette Disposition will discharge once medically stable Admission and Anticipated Discharge Date Admission Date: November 14, 2022 Subjective Pt was seen and examined for follow up Lying in bed with no acute distress Pt said that he continues to have discomfort left upper side of his abdomen adjacent to his ribs He said that the pain seems to be mild, but activity seem to increase the pain a little Denies any nausea, palpitation, dizziness and vomiting Review of Systems Review of Systems: All systems reviewed & are unremarkable except as noted in Subjective Physical Exam Physical Exam: General- No acute distress Head- atraumatic Eyes- PERRL, EOMI, ENT- oropharynx clear Neck- supple, no JVD Lungs- clear to auscultation Heart- regular rhythm; no murmur Abdomen- normal bowel sounds, soft, +tender border of LUQ Extremities- no calf tenderness Neuro- alert, oriented x 3; PERRL, EOMI; no facial palsy; no dysarthria Skin- warm & dry Results & Data Results & Data ([facility] Vital Signs (Past 12 Hours) Vital Signs Temp Pulse Pulse Resp BP Pulse Ox O2 Del Method 11/15/22 10:23 75 11/15/22 10:02 Room Air 11/15/22 08:03 36.5 C 53 L 18 136/76 93 Room Air 11/15/22 04:10 36.6 C 54 L 20 118/74 93 Room Air 11/15/22 00:24 36.7 C 57 L 20 132/76 94 Room Air (1) Pancreatitis Acute pancreatitis complication: unspecified Chronicity: acute Pancreatitis type: unspecified pancreatitis type Qualified Code(s): K85.90 - Acute pancreatitis without necrosis or infection, unspecified (2) Chest pain Chest pain type: unspecified Qualified Code(s): R07.9 - Chest pain, unspecified
[2022-11-15] MEDS: ACETAMINOPHEN 1,000 MG/100 ML VIAL IV PRN (12:02)
[2022-11-15] MEDS: PANTOprazole 40 MG TAB PO SCH (20:15)
[2022-11-15] MEDS: TAMSULOSIN HCL 0.4 MG CAP PO SCH (20:15)
[2022-11-15] MEDS: ATORVASTATIN 40 MG TAB PO SCH (20:15)
[2022-11-15] MEDS: FINASTERIDE 5 MG TAB PO SCH (20:15)
[2022-11-15] MEDS: ENOXAPARIN INJ 40 MG/0.4 ML SYR SQ SCH (20:15)
[2022-11-16] MEDS: LACTATED RINGER'S 1,000 ML IV SCH (06:22)
[2022-11-16] MEDS: ACETAMINOPHEN 1,000 MG/100 ML VIAL IV PRN (07:50)
[2022-11-16] MEDS: ASPIRIN 81 MG ECTAB PO SCH (08:15)
[2022-11-16] MEDS: lisinopril 20 MG TAB PO SCH (08:15)
--- NOTE | 2022-11-16 13:04 | Discharge Summary ---
Date of Service November 16, 2022 Admission HPI Per Admitting Provider This is a 74-year-old male with PMH of hypertension, hyperlipidemia, BPH, GERD and other medical problems listed below who presents with chest pain and shortness of breath. Saw PCP on Wednesday and had some lab work performed for CP and SOB. Pain is in lower left chest and radiates to the right. Worse with exertion and better with rest. Last for about an hour at a time and he describes it as sharp. No nausea or vomiting. Does not radiate to arms or jaw. Does not seem to get worse after eating. He was called about today and instructed to come to ED for further evaluation for PE due to elevated d-dimer. History of pancreatitis in the past that was idiopathic. Has not had any alcohol in months and does not smoke. Still has gallbladder. Is on atorvastatin for high cholesterol. Denies any fever or chills. No lightheadedness, headache, palpitations, shortness of breath, wheezing, nausea, vomiting, lower abdominal pain, dysuria, diarrhea or constipation. Admission Exam Per Admitting Provider (1) Epigastric pain: (2) Chest pain: (3) Pancreatitis: (4) Pancreatic abnormality: (5) BPH (benign prostatic hyperplasia): (6) HTN (hypertension): (7) Hypercholesteremia: (8) GERD (gastroesophageal reflux disease) Principal Diagnosis Epigastric pain: Chest pain: Pancreatitis: Pancreatic abnormality: BPH (benign prostatic hyperplasia): HTN (hypertension): Discharge Exam General- No acute distress Head- atraumatic Eyes- PERRL, EOMI, ENT- oropharynx clear Neck- supple, no JVD Lungs- clear to auscultation Heart- regular rhythm; no murmur Abdomen- normal bowel sounds, soft, +tender border of LUQ Extremities- no calf tenderness Neuro- alert, oriented x 3; PERRL, EOMI; no facial palsy; no dysarthria Skin- warm & dry Discharge Data Allergies Allergy/AdvReac Type Severity Reaction Status Date / Time Penicillins Allergy Intermediate Hives Verified 11/14/22 14:54 Consultations 11/14/22 15:46 ED Decision to Admit Stat Ordered Studies 11/14/22 13:04 CT angio chest PE protocol Stat 11/14/22 17:55 US abdomen limited Routine Laboratory Results WBC 4.77 K/ul (4.8-10.8) L 11/15/22 07:12 RBC 4.45 M/uL (4.63-6.08) L 11/15/22 07:12 Hgb 13.9 g/dl (14.0-18.0) L 11/15/22 07:12 Hct 39.3 % (40.1-51.0) L 11/15/22 07:12 MCV 88.3 fL (80.0-100.0) 11/15/22 07:12 MCH 31.2 pg (25.0-34.0) 11/15/22 07:12 MCHC 35.4 g/dL (32.0-36.0) 11/15/22 07:12 RDW Std Deviation 41.9 fL (36.4-46.3) 11/15/22 07:12 RDW Coeff of Aleta 12.9 % (11.5-14.5) 11/15/22 07:12 Plt Count 163 K/uL (130-400) 11/15/22 07:12 MPV 9.9 fL (9.4-12.4) 11/15/22 07:12 Immature Gran % (Auto) 0.3 % 11/14/22 12:52 Neut % (Auto) 69.1 % 11/14/22 12:52 Lymph % (Auto) 19.6 % 11/14/22 12:52 Weak[place] % (Auto) 7.4 % 11/14/22 12:52 Eos % (Auto) 3.4 % 11/14/22 12:52 Baso % (Auto) 0.2 % 11/14/22 12:52 Neut # (Auto) 4.01 K/uL (1.4-6.5) 11/14/22 12:52 Lymph # (Auto) 1.14 K/uL (1.2-3.4) L 11/14/22 12:52 Weakley # (Auto) 0.43 K/uL (0.24-0.82) 11/14/22 12:52 Eos # (Auto) 0.20 K/uL (0-0.50) 11/14/22 12:52 Baso # (Auto) 0.01 K/uL (0-0.2) 11/14/22 12:52 Immature Gran # (Auto) 0.02 K/uL (0.00-0.02) 11/14/22 12:52 Sodium 140 mmol/L (136-145) 11/15/22 07:12 Potassium 3.9 mmol/L (3.5-5.1) 11/15/22 07:12 Chloride 106 mmol/L (98-107) 11/15/22 07:12 Carbon Dioxide 28 mmol/L (21-32) 11/15/22 07:12 Anion Gap 6 (3-11) 11/15/22 07:12 BUN 15 mg/dl (6-23) 11/15/22 07:12 Creatinine 0.89 mg/dl (0.6-1.4) 11/15/22 07:12 Est Cr Clr Drug Dosing 79.9 ml/min 11/15/22 07:12 Est GFR ( Amer) 100.4 ml/min 11/15/22 07:12 Est GFR (Non-Af Amer) 86.6 ml/min 11/15/22 07:12 BUN/Creatinine Ratio 16.9 (10-20) 11/15/22 07:12 Glucose 87 mg/dl (70-99(Fasting)) 11/15/22 07:12 Calcium 8.5 mg/dl (8.5-10.1) 11/15/22 07:12 Total Bilirubin 1.0 mg/dl (0.2-1.0) 11/15/22 07:12 AST 17 U/L (13-39) 11/15/22 07:12 ALT 15 U/L (7-52) 11/15/22 07:12 Alkaline Phosphatase 76 U/L (34-104) 11/15/22 07:12 Troponin I High Sens 8.3 pg/ml (0-20) 11/14/22 21:41 Total Protein 6.1 gm/dl (6.0-8.3) 11/15/22 07:12 Albumin 3.7 gm/dl (3.4-5.0) 11/15/22 07:12 Globulin 2.4 gm/dl (2.5-4.0) L 11/15/22 07:12 Albumin/Globulin Ratio 1.5 (0.9-2) 11/15/22 07:12 Triglycerides 112 mg/dl (0-150) 11/15/22 07:12 Cholesterol 129 mg/dl (0-200) 11/15/22 07:12 LDL Cholesterol, Calc 76 mg/dl 11/15/22 07:12 VLDL Cholesterol, Calc 22 mg/dl (0-30) 11/15/22 07:12 HDL Cholesterol 31 mg/dl 11/15/22 07:12 Cholesterol/HDL Ratio 4.2 (0-5) 11/15/22 07:12 Lipase 100 U/L (11-82) H 11/15/22 07:12 SARS-CoV-2, RNA, NAAT NEGATIVE (NEGATIVE) 11/14/22 16:12 Impressions Chest CTA 11/14/22 13:04 CT ANGIOGRAPHY OF THE CHEST, PULMONARY EMBOLUS PROTOCOL CLINICAL HISTORY: Chest Pain, eval for PE, +dimer outpatient COMPARISON STUDY: Chest CT December 11, 2020. TECHNIQUE: Following IV administration of 111 mL of Optiray, helical axial images of the chest were obtained utilizing the pulmonary embolus protocol. Maximal intensity projections and sagittal and coronal reformats were viewed on an independent 3D workstation. IV contrast was administered without complication. Automated exposure control was utilized for the study. A dose lowering technique was utilized adhering to the principles of ALARA. CT DOSE: 528.01 mGy.cm FINDINGS: No pulmonary emboli are identified. There is no thoracic aortic dissection. Size of the heart is within normal limits. There is no pericardial effusion. A small hiatal hernia is present. Evidence for a previous granulomatous process includes calcified thoracic lymph nodes and calcified granulomas within the spleen. There is no consolidation to suggest pneumonia. No pneumothorax or pleural effusion is present. No acute fractures within the visualized bony thorax are noted. Right shoulder arthroplasty is present. IMPRESSION: 1. No pulmonary emboli identified. 2. No acute intrathoracic findings. ACT 112: Negative or not required by law. Electronically signed by: Isaac Dennis M.D. 11/14/2022 2:28 PM Abdomen Ultrasound 11/14/22 17:55 ABDOMINAL ULTRASOUND, RIGHT UPPER QUADRANT HISTORY: Chest pain. Evaluate for gallstone pancreatitis, has GB. COMPARISON: Right upper quadrant ultrasound and MRI of the abdomen January 22, 2020. CT of the abdomen and pelvis December 11, 2020. FINDINGS: No hepatic lesions are identified. There is no biliary ductal dilatation. The common bile duct measures 4 mm in caliber. The pancreas is obscured by overlying bowel gas. No gallstones are identified. No gallbladder wall thickening. There is no right hydronephrosis. IMPRESSION: 1. No gallstones. No gallbladder wall thickening. 2. No biliary ductal dilatation. 3. Obscured pancreas. ACT 112: Negative or not required by law. Electronically signed by: Isaac Dennis M.D. 11/14/2022 7:36 PM Hospital Course (1) Epigastric pain: (2) Chest pain: (3) Pancreatitis: (4) Pancreatic abnormality: (5) BPH (benign prostatic hyperplasia): (6) HTN (hypertension): (7) Hypercholesteremia: (8) GERD (gastroesophageal reflux disease): Plan This is a 74-year-old male with PMH of hypertension, hyperlipidemia, BPH, GERD and other medical problems listed below who presents with chest pain and shortness of breath and found to have elevated lipase concerning for pancreatitis. Epigastric pain Possible pancreatitis Lower chest/epigastric sharp pain since last week. D-dimer elevated but CTA without evidence of PE or acute intrathoracic findings Abdominal u/s showed . No gallstones. No gallbladder wall thickening. No biliary ductal dilatation. Initial lipase 171 on admission, trending down to 100 today Will start on full liquid diet and advanced as tolerated Continue pain control Continue IVF Atypical chest pain Seems to be more GI etiology ( pain location at the border of LUQ ) Troponin negative x [address] or T wave changes ECHO showed no LV wall motion abnormality with EF 60-65 % Continue aspirin and statin Continue monitor closely Bradycardia Asymptomatic Tele monitor showed sinus bradycardia Not on any beta harlan Stable HTN Continue lisinopril BP stable HLD Continue statin BPH Continue finasteride, tamsulosin GERD Continue pantoprazole DVT Ppx: SQ lovenox Code status: FULL PCP: Arturor Disposition Follow up with primary care provider in 1 week Total Time Total Time Spent Total Time Spent (In Minutes): 35 minutes Discharge Plan Discharge Items Patient Disposition: Home - Self-Care Reason For Visit: PANCREATITIS Discharge Diagnosis: (1) Epigastric pain: (2) Chest pain: (3) Pancreatitis: (4) Pancreatic abnormality: (5) BPH (benign prostatic hyperplasia): (6) HTN (hypertension): (7) Hypercholesteremia: (8) GERD (gastroesophageal reflux disease) Activity: Resume your previous activity Non-emergency contact: Primary Care Provider and Adjuster [employer] Contacts Call non-emergency contact if: you have any medication questions Follow-up/Referrals: Collins Will, DO [Primary Care Provider] - Diet: Low Fat Addtl Attending Provider Instructions: Follow up with you your primary care provider dr. Madden in 1 week Fallow up with gastroenterology outpatient for further management Seek urgent medical attention if your symptoms worsening Fall precaution Pending Studies at Discharge: No Stand-Alone Forms: My [facility] [employer], Smoking Cessation Medications and DC Order Prescriptions: Continued tamsulosin [Flomax] 0.4 mg Capsule 0.4 mg PO HS pantoprazole 40 mg Tablet,Delayed Release (Dr/Ec) 40 mg PO HS albuterol sulfate 90 mcg/actuation Aerosol Powdr Breath Activated 2 - 4 inh INHALATION Q6H PRN (Reason: Shortness Of Breath) lisinopril 20 mg Tablet 20 mg PO QAM finasteride 5 mg Tablet 5 mg PO QPM ibuprofen 200 mg Tablet 200 mg PO Q6H PRN (Reason: Pain) atorvastatin 40 mg Tablet 40 mg PO HS 30 Days Qty: 30 1RF aspirin 81 mg Tablet,Delayed Release (Dr/Ec) 81 mg PO QAM 30 Days Qty: 30 1RF Discharge Orders: Discharge Order (Routine); Ordered 11/16/22 Ordered By: Alondra Edwards Admission Data Admit Date/Time: 11/15/22 18:13 Attending Provider: Alondra Edwards Admit Provider: Alondra Edwards Primary Care Provider: Collins Will Other Providers: Alondra Edwards
--- NOTE | 2022-11-16 18:44 | Electrocardiogram Report ---
Test Reason : Blood Pressure : / mmHG Vent. Rate : 050 BPM Atrial Rate : 050 BPM P-R Int : 268 ms QRS Dur : 088 ms QT Int : 468 ms P-R-T Axes : 048 007 031 degrees QTc Int : 426 ms Sinus bradycardia with 1st degree A-V block Nonspecific ST abnormality Abnormal ECG When compared with ECG of 14-NOV-2022 13:26, No significant change was found Confirmed by Jorge A Burgess ([id number]) on 11/16/2022 6:43:50 PM Referred By: REFERRED SELF Confirmed By:Kush Burgess
--- NOTE | 2022-11-16 18:53 | Electrocardiogram Report ---
Test Reason : Blood Pressure : / mmHG Vent. Rate : 050 BPM Atrial Rate : 050 BPM P-R Int : 310 ms QRS Dur : 082 ms QT Int : 446 ms P-R-T Axes : 057 004 023 degrees QTc Int : 406 ms Sinus bradycardia with 1st degree A-V block Abnormal ECG When compared with ECG of 15-NOV-2022 06:23, (unconfirmed) T wave inversion now evident in Anterior leads Confirmed by Jorge A Burgess ([id number]) on 11/16/2022 6:53:12 PM Referred By: REFERRED SELF Confirmed By:Kush Burgess
== END 2022-11-16 14:59 | disposition home or self-care (01) | DRG 440 ==
LOC: ED 12:35 → EDINP 16:03 → INTOOBSV 16:03 → 2N 19:00